=== PATIENT | female | born 1930 | race Caucasian/White ===

== ENCOUNTER 2018-12-17 13:45 | Inpatient (IN) | payer MEDICARE ==
[~2018-12-17 13:45] MED LIST: ISOVUE-370 76%-LOCM 1 ML ONE; Iopamidol 370 76% 50 ML VIAL FS ONE
[2018-12-17 14:54] LABS: #Basophils 0.1 thou/uL (0.0-0.2); #Eosinphils 0.1 thou/uL (0.0-0.7); #Lymphocytes 0.8 thou/uL (1.20-3.40); #Monocytes 0.5 thou/uL (0.11-0.59); #Neutrophils 7.5 thou/uL (1.40-6.50); %Basophils 0.6 % (0.0-1.0); %Eosinophils 0.8 % (0.0-10.0); %Lymphocytes 8.8 % (21.0-51.0); %Monocytes 5.3 % (0.0-10.0); %Neutrophils 84.5 % (42.0-75.0); Hemoglobin 10.8 g/dL (12.0-16.0); Mean Corpuscular HGB CONC 31.5 g/dL (32.0-36.0); Mean Corpuscular Hemoglobin 31.2 pg (27.0-31.0); Mean Corpuscular Volume 99.1 fL (78.0-98.0); Platelet Count 224 thou/uL (130-400); RBC Distribution Width 12.8 % (11.5-14.5); Red Blood Cell (RBC) Count 3.45 mill/uL (4.20-5.40); White Blood Cell (WBC) Count 8.9 thou/uL (4.8-10.8)
[2018-12-17 15:18] LABS: ALT (SGPT) 14 U/L (8-55); AST (SGOT) 20 U/L (5-34); Albumin 3.5 g/dL (3.4-4.8); Alkaline Phosphatase 77 U/L (40-150); Anion Gap 15 mmol/L (10-20); BUN (Urea Nitrogen) 26 mg/dL (9.8-20.1); Bilirubin, Total 0.2 mg/dL (0.2-1.2); Calc. Creatinine Clearance 0 mL/min (70-130); Calcium 9.9 mg/dL (7.8-10.44); Carbon Dioxide 31 mmol/L (23-31); Chloride 97 mmol/L (98-107); Estimated GFR-MDRD 89; Globulin 3.7 g/dL (2.4-3.5); Glucose 106 mg/dL (83-110); Potassium 4.1 mmol/L (3.5-5.1); Protein, Total 7.2 g/dL (6.0-8.3); Sodium 139 mmol/L (136-145)
[2018-12-17 16:16] LABS: INR-International Normal Ratio 0.9; PTT 42.8 SEC (22.9-36.1); Prothrombin Time 12.4 SEC (12.0-14.7)
[2018-12-17 17:04] LABS: Bilirubin Small (Negative); Blood, Urine Negative (Negative); Clarity TURBID (Clear); Glucose, Urine (Dipstick) Negative (Negative); Leukocyte Large (Negative); Nitrite Negative (Negative); Protein, Urine (Dipstick) 30 mg/dL (Neg-Trace); Specific Gravity, Urine 1.019 (1.002-1.036); Urobilinogen 0.2 mg/dL (0.2-1.0); pH, Urine 5.5 (5.0-9.0)
[2018-12-17 17:06] LABS: Bacteria/HPF 4+ HPF (None Seen); Hyaline Casts/LPF 7-10 HYALINE CAST LPF (0-3 Hyaline); Pathc Cast-AUWi Flag 0.53 (0-2.49); Squamous Epithelial None Seen HPF (0-3)
[2018-12-17 17:13] LABS: Yeast-AUWi Flag 47.5 (0-25.0)
[2018-12-17 17:14] LABS: Yeast-All Forms None Seen HPF (None Seen)
--- NOTE | 2018-12-17 18:03 | CT ---
CT OF THE ABDOMEN AND PELVIS WITH IV AND ENTERIC CONTRAST: 12/17/18 INDICATION: History of bright red blood in patient's stool since this morning with a history of Crohn's disease. COMPARISON: Prior exam dated 03/17/09. FINDINGS: There is mild subsegmental volume loss within the lingula and left lower lobe. No focal hepatic lesion is evident. There are two tiny hypodensities within the pancreas. One is seen measuring 4 mm within the pancreati c body. One is seen measuring 7 mm within the pancreas tail. These were likely present in 2008 and is relatively stable and may reflect small pancreatic cyst. There is a left adrenal nodule measuring 1.2 cm, stable to the prior exam likely reflecting a small a denoma. Right adrenal gland is normal appearing. There are small right renal cysts. The largest is seen within the right mid kidney measuring 2 cm. Le ft kidney is unremarkable appearing. There are moderate calcification involving the abdominal and pelvic vasculature. There is wall thickening involving a loop of sigmoid colon with pericolonic inflammatory stranding weinstein spicious for colonic diverticulitis. No definite drainable fluid collection is grossly evident. The o pacified small and large bowel appear otherwise within normal limits. There are scattered diverticul a involving the sigmoid colon and descending colon. There is diffuse osteopenia. There is levoscoliosis of the lumbar spine. There is scattered degenerat nolan and osteoarthritic change. No definite acute osseous abnormality is evident. IMPRESSION: 1. Findings suspicious for a sigmoid diverticulitis. There is wall thickening involving the sigm oid colon with scattered colonic diverticula. No drainable fluid collection is evident. 2. Left basilar atelectasis. 3. Small right renal cysts. 4. Small hypodensities within the pancreas stable to 2009 likely reflecting small pancreatic cys ts. 5. Diffuse osteopenia. POS: [facility]
[2018-12-17] MEDS ORDERED: metroNIDAZOLE 500 MG/100 ML BAG ONE (18:37)
[2018-12-17] MEDS ORDERED: Cefepime 2 GM VIAL ONE (18:47)
[2018-12-17] MEDS ORDERED: Ondansetron ODT 4 MG TAB SL PRN (22:48)
[2018-12-17] MEDS ORDERED: Ondansetron ODT 4 MG TAB PO PRN (22:48)
[2018-12-17] MEDS ORDERED: Ondansetron PF 4 MG/2 ML Vial IVP PRN ×2 (22:48)
[2018-12-17] MEDS ORDERED: Acetaminophen 325 MG TAB PO PRN ×2 (22:48)
[2018-12-17] MEDS ORDERED: Sodium Chloride 0.9% 1,000 ML IV SCH ×2 (22:48→23:00)
[2018-12-18] MEDS: cefTRIAXone\\ROCEPHIN 2 GM in Sodium Chloride 0.9% 100 ML IVPB SCH ×2 (00:42→22:37)
[2018-12-18] MEDS ORDERED: Budesonide 0.5 MG/2 ML NEB NEB SCH (00:45)
[2018-12-18] MEDS ORDERED: Arformoterol 15 MCG/2 ML NEB NEB SCH (00:45)
[2018-12-18 01:05] VITALS: BMI 15.7
[2018-12-18] MEDS: PROVENTIL INHALER 6.7 G (200 INHALATIONS) INH SCH ×2 (01:06→06:10)
--- NOTE | 2018-12-18 02:11 | HP ---
PRIMARY CARE PHYSICIAN: Brayden Carrasco DO CHIEF COMPLAINT: Hematochezia. HISTORY OF PRESENT ILLNESS: Ms. Mustafa is a pleasant 88-year-old female with a past medical history of COPD, Crohn's, asthma, who had presented to [facility] earlier today due to bloody loose stools. She had reported symptoms started this morning. Per family, the patient had spaghetti and spaghetti sauce about 2 days prior to arrival before her symptoms started. During her initial evaluation, CT of abdomen was obtained and did show findings suspicious for sigmoid diverticulitis with wall thickening involving the sigmoid colon with scattered colonic diverticula. No drainable fluid collection was evident. In the emergency department, she was started on IV cefepime and IV Flagyl. Vital signs remained stable. BP was noted to be slightly elevated at 176/84, pulse 69, respirations 16 nonlabored, O2 saturations remained stable at 98% on 2 L of oxygen. She had remained on her normal home dose of oxygen. She was seen and examined with her daughter at bedside. She had denied any fever or chills. Denied any headache, blurred vision, or dizziness. She denied any chest pain or shortness of breath, no more than her baseline. She had reported some mild abdominal cramping, however, this had resolved since being in the emergency department. She had denied any nausea or vomiting, but did report bright red blood in stool. She was started on a clear liquid diet and her primary pulmonary function technician, Dr. Hair was consulted for further evaluation of her condition. It was deemed that the patient be admitted as inpatient for continued IV antibiotics. It was also noted that her hemoglobin dropped to 10.8. Her last documented hemoglobin was back in 2017, which was found to be 15.2. Repeat hemoglobin was ordered and pending at this time. REVIEW OF SYSTEMS: All other systems reviewed and found to be negative unless mentioned in the HPI. PAST MEDICAL HISTORY: Significant for COPD, Crohn disease, asthma, history of skin cancer. PAST SURGICAL HISTORY: Denies any past surgical history. SOCIAL HISTORY: Denies any alcohol, tobacco, or illicit drug use. ALLERGIES: LACTOSE AND PENICILLINS. CURRENT HOME MEDICATIONS: 1. Asacol 800 mg b.i.d. 2. Montelukast 10 mg p.o. at bedtime. 3. Brovana 50 mcg inhalation b.i.d. 4. Budesonide 0.5 mg inhalation b.i.d. 5. Albuterol sulfate 4 mg p.o. every 4 hours. 6. Albuterol sulfate 90 mcg one inhalation q.6 hours as needed for wheezing. PHYSICAL EXAMINATION: VITAL SIGNS: BP 176/84, pulse 69, respirations 16, temp 98.2 degrees Fahrenheit, and O2 saturation 98% on 2 L via nasal cannula. GENERAL: The patient is awake, alert, and oriented x3. No acute distress noted. The patient appears cachectic. HEENT: Atraumatic, normocephalic. Pupils round and reactive to light. Extraocular muscles intact. Moist mucous membranes noted. Currently on 2 L of oxygen via nasal cannula. CARDIOVASCULAR: Positive S1 and S2. Regular rate and rhythm. No murmurs auscultated. RESPIRATORY: Clear to auscultation bilaterally with slight decreased aeration at the bases. No wheezes, no rales, no rhonchi. 2 L via nasal cannula in place. ABDOMEN: Soft. Mild tenderness in the left lower quadrant. No rebound. No rigidity. MUSCULOSKELETAL: Strength 5+ bilaterally in upper and lower extremities. Moves all extremities equal. No edema noted. NEUROLOGIC: Cranial nerves 2 through 12 grossly intact. No focal deficits noted. Speech is intact and normal. Gait not assessed. PSYCHIATRIC: Good mood and affect. LABORATORY DATA: WBC 8.9, RBC 3.45, hemoglobin 10.8, platelet 224. Sodium 139, potassium 4.1, anion gap 15, BUN 26, creatinine 0.63, estimated GFR 89. Urinalysis showed large leukocyte esterase, greater than 50 wbc's, 4+ bacteria, 30 protein, small bilirubin. DIAGNOSTIC IMAGING: CT of abdomen showed findings suspicious of sigmoid diverticulitis. There is wall thickening involving the sigmoid colon with scattered colonic diverticula. No drainable fluid collection is evident, left basilar atelectasis. Small right renal cyst. Small hypodensities within the pancreas, stable at 2009, likely reflecting small pancreatic cyst. Diffused osteopenia. ASSESSMENT AND PLAN: 1. Diverticulitis, continue on IV antibiotics at this time. Start the patient on clear liquid diet as tolerated. Recheck CBC in the a.m. and monitor for any further blood loss. If the patient's hemoglobin continues to drop, we will transfuse with packed red blood cells as needed. Consult placed for the patient's primary pulmonary function technician, Dr. Hair, for further evaluation. 2. Anemia, likely secondary to above. We will recheck CBC in the a.m. and depending on hemoglobin, we will transfuse as needed for hemoglobin less than 7 or further blood loss. 3. Urinary tract infection, this will be covered with IV antibiotics for diverticulitis. Urine culture ordered and pending at this time. 4. History of chronic obstructive pulmonary disease, currently stable at this time. Continue on 2 L of oxygen via nasal cannula and titrate as needed. Continue on patient's home regimen and monitor closely. 5. Gastrointestinal prophylaxis. 6. Deep venous thrombosis prophylaxis with SCDs. No further anticoagulation at this time as patient with risk of bleeding. 7. Generalized weakness. Order PT/OT for further evaluation. 8. Surrogate decision maker is patient's daughter. 9. Code status. There was further discussion with the patient and daughter. There was some discrepancy for code status, however, it was determined that the patient be placed on full code at this time and further changes as patient and daughter discussed further options. 10. Disposition, pending further workup and clinical findings. Job ID: [id number]
[2018-12-18] MEDS: metroNIDAZOLE 500 MG in Premix Bag 1 BAG IVPB SCH ×3 (05:25→22:36)
[2018-12-18] MEDS: Budesonide 0.5 MG/2 ML NEB NEB SCH ×2 (06:08→19:15)
[2018-12-18] MEDS: Arformoterol 15 MCG/2 ML NEB NEB SCH ×2 (06:12→19:13)
[2018-12-18] MEDS: hydrALAZINE 20 MG/ML VIAL SLOW IVP PRN (06:27)
[2018-12-18 06:38] LABS: #Basophils 0.1 thou/uL (0.0-0.2); #Eosinphils 0.1 thou/uL (0.0-0.7); #Monocytes 0.5 thou/uL (0.11-0.59); #Neutrophils 3.8 thou/uL (1.40-6.50); %Basophils 1.1 % (0.0-1.0); %Eosinophils 1.7 % (0.0-10.0); %Lymphocytes 17.7 % (21.0-51.0); %Monocytes 9.5 % (0.0-10.0); %Neutrophils 70.1 % (42.0-75.0); Hemoglobin 9.8 g/dL (12.0-16.0); Mean Corpuscular HGB CONC 31.4 g/dL (32.0-36.0); Mean Corpuscular Hemoglobin 31.4 pg (27.0-31.0); Mean Platelet Volume 8.1 fL (7.4-10.4); Platelet Count 173 thou/uL (130-400); RBC Distribution Width 12.8 % (11.5-14.5); Red Blood Cell (RBC) Count 3.11 mill/uL (4.20-5.40); White Blood Cell (WBC) Count 5.5 thou/uL (4.8-10.8)
[2018-12-18 07:11] LABS: Anion Gap 13 mmol/L (10-20); BUN (Urea Nitrogen) 18 mg/dL (9.8-20.1); Calc. Creatinine Clearance 41 mL/min (70-130); Calcium 9.2 mg/dL (7.8-10.44); Carbon Dioxide 30 mmol/L (23-31); Chloride 101 mmol/L (98-107); Estimated GFR-MDRD Greater than 90; Glucose 74 mg/dL (83-110); Potassium 3.8 mmol/L (3.5-5.1); Sodium 140 mmol/L (136-145)
[2018-12-18] MEDS: Famotidine/PF 20 mg/2ml Vial SLOW IVP SCH ×2 (09:02→22:36)
[2018-12-18] MEDS: Mesalamine DR 400 mg Capsule PO SCH ×2 (09:02→20:02)
[2018-12-18] MEDS: Dextrose 5 %-0.45 % NaCl 1,000 ML IV SCH (14:51)
[2018-12-18 17:53] LABS: Platelet Count 184 thou/uL (130-400)
--- NOTE | 2018-12-18 19:19 | PDOC.PN ---
- Subjective Encounter Start Date: 12/18/18 Encounter Start Time: 19:17 Patient seen and examined for Diverticulitis with GI bleeding and UTI. Had multiple episodes of hematochezia today. No N/V. No new complaints. No overnight events - Objective Resuscitation Status - Order Detail: 12/17/18 22:48 Resuscitation Status Routine Co-Sign Provider: Resuscitation Status: FULL: Full Resuscitation MAR Reviewed: Yes Vital Signs & Weight: Vital Signs (12 hours) Temp Pulse Resp BP Pulse Ox 12/18/18 19:03 85 16 97 12/18/18 16:00 98.4 F 84 20 165/67 H 97 12/18/18 11:45 98.2 F 94 20 118/57 L 100 12/18/18 11:33 84 18 97 12/18/18 07:18 98.0 F 94 24 H 158/62 H 100 Weight Weight 89 lb 4.8 oz I&O: 12/17/18 12/18/18 12/19/18 06:59 06:59 06:59 Intake Total 800 Balance 800 Result Diagrams: 12/18/18 17:46 12/18/18 06:14 Additional Labs: Laboratory Tests 12/17/18 12/18/18 12/18/18 14:41 06:14 17:46 Hgb 10.8 L 9.8 L 8.0 L Radiology Reviewed by me: Yes (CT abd - Diverticulitis) Phys Exam - Physical Examination Constitutional: NAD Neck: no JVD Respiratory: no wheezing, no rales, no rhonchi Symmetrical Cardiovascular: RRR, no rub no heaves/pulsations Gastrointestinal: soft, non-tender, no distention, positive bowel sounds Musculoskeletal: no edema, pulses present Neurological: non-focal, normal sensation, moves all 4 limbs Skin: no rash, normal turgor Dx/Plan (1) GI bleed Code(s): K92.2 - GASTROINTESTINAL HEMORRHAGE, UNSPECIFIED Status: Acute Qualifiers: GI bleed type/associated pathology: diverticulitis Qualified Code(s): K57.93 - Diverticulitis of intestine, part unspecified, without perforation or abscess with bleeding (2) Acute blood loss anemia Code(s): D62 - ACUTE POSTHEMORRHAGIC ANEMIA Status: Acute (3) UTI (urinary tract infection) Status: Acute (4) IBD (inflammatory bowel disease) Code(s): K52.9 - NONINFECTIVE GASTROENTERITIS AND COLITIS, UNSPECIFIED Status : Chronic (5) Mild persistent asthma Code(s): J45.30 - MILD PERSISTENT ASTHMA, UNCOMPLICATED Status: Chronic - Plan cont current plan of care, continue antibiotics, PT/OT, DVT proph w/SCDs Cont current Atbx, Add D5 to IVF -: Cont Nebs -: Transfuse 1 unit PRBC due to significant drop in HH -: Monitor HH -: GI following, Cont current meds as below Review of Systems - Review of Systems Respiratory: negative: Cough, Dry, Shortness of Breath, Hemoptysis, SOB with Excertion, Pleuritic Pain, Sputum, Wheezing Cardiovascular: negative: chest pain, palpitations, orthopnea, paroxysmal nocturnal dyspnea, edema, light headedness, other Gastrointestinal: negative: Nausea, Vomiting, Abdominal Pain, Diarrhea, Constipation, Melena, Hematochezia, Other - Medications/Allergies Allergies/Adverse Reactions: Allergies Allergy/AdvReac Type Severity Reaction Status Date / Time [place] And Derivatives Allergy Verified 12/18/18 00:09 lactulose Allergy Verified 12/18/18 00:09 Penicillins Allergy Verified 12/18/18 00:09 Medications: Current Medications Acetaminophen (Tylenol) 650 mg PO Q4H PRN PRN Reason: Headache/Fever/Mild Pain (1-3) Albuterol/Ipratropium (Duoneb) 3 ml NEB [id number] FELIX Last Admin: 12/18/18 19:03 Dose: 3 ml Albuterol/Ipratropium (Duoneb) 3 ml NEB [id number] PRN PRN Reason: SOB &/or Wheezing Arformoterol Tartrate (Brovana) 15 mcg NEB BID-RT FELIX Last Admin: 12/18/18 19:13 Dose: 15 mcg Budesonide (Pulmicort Neb Solution) 0.5 mg NEB BID-RT FELIX Last Admin: 12/18/18 19:15 Dose: 0.5 mg Famotidine (Pepcid) 20 mg SLOW IVP Q12HR FELIX Last Admin: 12/18/18 09:02 Dose: 20 mg Hydralazine HCl (Apresoline) 5 mg SLOW IVP Q4H PRN PRN Reason: BP > 170/105 Last Admin: 12/18/18 06:27 Dose: 5 mg Ceftriaxone Sodium 2 gm/ (Sodium Chloride) 100 mls @ 200 mls/hr IVPB Q24HR [facility] Last Admin: 12/18/18 00:42 Dose: 100 mls Metronidazole 500 mg/ Device 100 mls @ 100 mls/hr IVPB Q8HR [facility] Last Admin: 12/18/18 14:52 Dose: 100 mls Dextrose/Sodium Chloride (D5 1/2 Ns) 1,000 mls @ 75 mls/hr IV .[id number] [facility] Last Admin: 12/18/18 14:51 Dose: 1,000 mls Mesalamine (Delzicol Dr) 800 mg PO BID [facility] Last Admin: 12/18/18 09:02 Dose: 800 mg Montelukast Sodium (Singulair) 10 mg PO HS [facility] Ondansetron HCl (Zofran Odt) 4 mg PO Q6H PRN PRN Reason: Nausea/Vomiting Ondansetron HCl (Zofran) 4 mg IVP Q6H PRN PRN Reason: Nausea/Vomiting Sodium Chloride (Flush - Normal Saline) 10 ml IVF Q12HR [facility] Last Admin: 12/18/18 09:02 Dose: Not Given Sodium Chloride (Flush - Normal Saline) 10 ml IVF PRN PRN PRN Reason: Saline Flush
[2018-12-18] MEDS: Montelukast Sodium 10 mg Tablet PO SCH (20:02)
--- NOTE | 2018-12-18 22:04 | CON ---
DATE OF CONSULTATION: 12/18/2018 REASON FOR CONSULTATION: Hematochezia, diverticulitis. CONSULTING PHYSICIAN: Bhuimka Dale M.D. HISTORY OF PRESENT ILLNESS: The patient is an 88-year-old female with a past medical history of COPD, asthma, history of skin cancer status post resection and Crohn's disease (right colonic side) presenting with complaints of hematochezia. She states that she was in her usual state of health until yesterday morning when she had the acute onset of bright red blood per rectum. It was characterized as a moderate amount of bright red blood that was present in the toilet, not on the toilet paper, but mixed with the stool. She proceeded to have 2-3 larger bloody bowel movements throughout the day, which prompted her to seek healthcare assistance at [facility]. During the ER admit, she had a CT of the abdomen and pelvis, which showed findings suspicious for sigmoid diverticulitis consistent with wall thickening involving the sigmoid colon with adjacent scattered colonic diverticula. She was admitted to the hospital for further evaluation, on IV antibiotics and IV fluids. Over the course of the last 24 hours, she has continued to have approximately 3-4 bloody bowel movements consisting of primarily blood mixed in with stool. Her hematochezia is also associated with increased mid abdominal pain characterized as a cramping pressure-type sensation, nonradiating, but would reach a severity of approximately 5-6/10. She does not endorse any clear exacerbating or alleviating factors. Currently, she denies any nausea, vomiting, fever, chills, hematemesis, melena, dysphagia, odynophagia, or constipation. Of note, prior to this admission, she was having approximately 1 solid bowel movement per day with no difficulty with defecation when compared to her prior flares of Crohn's in the past her current symptoms are not consistent with that diagnosis. REVIEW OF SYSTEMS: A 10-category review of systems was obtained with all responses negative except for the pertinent positives as listed in HPI. PAST MEDICAL HISTORY: As per HPI. PAST SURGICAL HISTORY: None except for colonoscopy in 2006. FAMILY HISTORY: Denies any GI malignancies. SOCIAL HISTORY: Denies any tobacco, alcohol, or illicit drug use. OUTPATIENT MEDICATIONS: Reviewed. ALLERGIES: PENICILLIN AND LACTOSE. PHYSICAL EXAMINATION: VITAL SIGNS: Temperature 97.5, pulse 71, blood pressure 123/58, respiratory rate 19, saturating 99% on room air. GENERAL: The patient was lying in bed, in no acute distress. However, she was alert and oriented x3 with occasional tangential thought processes, what appeared to be possible visual hallucinations. HEENT: Normocephalic atraumatic. NECK: Supple. No JVD or scleral icterus noted. CARDIOVASCULAR: Regular rate and rhythm with 3/6 systolic ejection murmur. No discernible gallops or rubs. RESPIRATORY: Clear to auscultation bilaterally with no discernible wheezes or rales. ABDOMEN: Normoactive bowel sounds. Soft, nondistended. Tenderness to palpation in the left lower quadrant and left mid abdomen. EXTREMITIES: Cachectic in appearance with no cyanosis, clubbing, or edema. LABORATORY DATA: CBC with a white blood cell count of 5.5, hemoglobin 9.8, hematocrit 31.2, platelets 173, INR 0.9. Chemistry with a sodium of 140, potassium 3.8, chloride 101, CO2 30, BUN 18, creatinine 0.59, glucose 74. Urinalysis consistent with a urinary tract infection. IMAGING DATA: CT of the abdomen and pelvis was obtained on December 17, 2018, which showed mild subsegmental volume loss within the lingula and left lower lobe of the lung. There were 2 tiny hypodensities within the pancreas measuring 4 mm and 7 mm within the pancreatic body and tail respectively that are stable when compared to prior examinations. There was moderate calcification involving the abdominal and pelvic vasculature. However, there was significant wall thickening involving a loop of sigmoid colon with pericolonic inflammatory stranding suspicious for colonic diverticulitis. There was no definite drainable fluid collection or evidence of perforation. There were scattered diverticula seen involving the sigmoid and descending colons. ASSESSMENT AND PLAN: The patient is an 88-year-old female with past medical history of severe chronic obstructive pulmonary disease, asthma, history of skin cancer and right-sided colonic Crohn's disease presenting with hematochezia and diverticulitis. Diverticulitis: The patient is presenting with acute onset of hematochezia characterized as bright red blood per rectum, primarily seen within the toilet with minimal amounts seen on the toilet paper. She had multiple bloody bowel movements for the last 24 hours consisting primarily of blood, but with some stool mixed in. Per imaging review, she has evidence of acute diverticulitis with increased pericolonic fat stranding around the sigmoid colon with adjacent diverticula. Again further running itself toward the diagnosis of diverticulitis. Based on the fairly sudden onset of the symptoms and her history of right-sided colonic Crohn's disease, I think a Crohn's disease flare is highly unlikely at this time, especially since her Crohn's disease has been controlled for the last few years with Asacol as monotherapy. At this time, the differential for her hematochezia could include diverticulitis with inflammation of the colon, diverticular bleeding, ischemic colitis, Crohn's disease flare (much less likely), arteriovenous malformation, Dieulafoy lesion and/or colonic malignancy. RECOMMENDATIONS: 1. We would continue to trend H and H and transfuse as necessary to maintain an H and H of 7/. 2. Continue to monitor clinically for signs of active GI bleeding. 3. We would continue with broad-spectrum antibiotics for treatment of her diverticulitis. 4. Pain control per primary team. 5. We would continue mesalamine administration at approximately 1.6 g per day. 6. We would hold on any endoscopic management at this time given the increased risk of perforation associated with endoscopic management of diverticulitis. However, if she continues to have significant hematochezia, decreasing H and H, a colonoscopy may be warranted to evaluate for possible diverticular bleeding. 7. We will continue to follow. 8. Please call with any questions. Job ID: [id number]
[2018-12-19] MEDS: metroNIDAZOLE 500 MG in Premix Bag 1 BAG IVPB SCH ×3 (05:23→21:07)
[2018-12-19] MEDS: Dextrose 5 %-0.45 % NaCl 1,000 ML IV SCH ×2 (05:24→14:26)
[2018-12-19] MEDS: Budesonide 0.5 MG/2 ML NEB NEB SCH ×2 (05:37→18:31)
[2018-12-19] MEDS: Arformoterol 15 MCG/2 ML NEB NEB SCH ×2 (05:40→18:32)
[2018-12-19 07:19] LABS: #Basophils 0.1 thou/uL (0.0-0.2); #Lymphocytes 0.9 thou/uL (1.20-3.40); #Monocytes 0.4 thou/uL (0.11-0.59); #Neutrophils 5.7 thou/uL (1.40-6.50); %Basophils 0.7 % (0.0-1.0); %Eosinophils 0.3 % (0.0-10.0); %Lymphocytes 12.7 % (21.0-51.0); %Monocytes 5.9 % (0.0-10.0); %Neutrophils 80.4 % (42.0-75.0); Hemoglobin 6.7 g/dL (12.0-16.0); Mean Corpuscular HGB CONC 32.2 g/dL (32.0-36.0); Mean Corpuscular Hemoglobin 31.3 pg (27.0-31.0); Mean Corpuscular Volume 97.1 fL (78.0-98.0); Mean Platelet Volume 8.2 fL (7.4-10.4); Platelet Count 172 thou/uL (130-400); RBC Distribution Width 13.9 % (11.5-14.5); Red Blood Cell (RBC) Count 2.13 mill/uL (4.20-5.40); White Blood Cell (WBC) Count 7.1 thou/uL (4.8-10.8)
[2018-12-19 07:41] LABS: Anion Gap 9 mmol/L (10-20); BUN (Urea Nitrogen) 19 mg/dL (9.8-20.1); Calc. Creatinine Clearance 38 mL/min (70-130); Carbon Dioxide 29 mmol/L (23-31); Chloride 102 mmol/L (98-107); Estimated GFR-MDRD 87; Glucose 148 mg/dL (83-110); Magnesium 1.7 mg/dL (1.6-2.6); Potassium 3.3 mmol/L (3.5-5.1); Sodium 137 mmol/L (136-145)
[2018-12-19] MEDS ORDERED: Fleet Enema 133 ML BOT PR SCH ×2 (09:15→09:30)
[2018-12-19] MEDS: Famotidine/PF 20 mg/2ml Vial SLOW IVP SCH ×2 (09:21→20:16)
--- NOTE | 2018-12-19 10:25 | PDOC.PN ---
- Subjective Encounter Start Date: 12/19/18 Encounter Start Time: 09:15 -: old records requested/rev Patient seen and examined. No overnight events pt is arousable and follows some command, but confused today her H & H dropped - Objective Resuscitation Status - Order Detail: 12/17/18 22:48 Resuscitation Status Routine Co-Sign Provider: Resuscitation Status: FULL: Full Resuscitation MAR Reviewed: Yes Vital Signs & Weight: Vital Signs (12 hours) Temp Pulse Resp BP BP Pulse Ox 12/19/18 08:00 99 12/19/18 07:39 97.4 F L 73 16 96/53 L 100 12/19/18 05:40 76 18 97 12/19/18 05:37 76 18 97 12/19/18 00:55 97.8 F 76 20 12/19/18 00:21 71 16 95 12/18/18 22:34 97.4 F L 17 128/62 98 Weight Weight 89 lb 4.8 oz Most Recent Monitor Data Heart Rate from ECG 70 I&O: 12/18/18 12/19/18 12/20/18 06:59 06:59 06:59 Intake Total 800 1300 0 Balance 800 1300 0 Result Diagrams: 12/19/18 06:38 12/19/18 06:38 Phys Exam - Physical Examination Constitutional: NAD HEENT: PERRLA, moist MMs, sclera anicteric Neck: no JVD, supple Respiratory: no wheezing, no rales, no rhonchi Cardiovascular: RRR, no significant murmur, no rub Gastrointestinal: soft, non-tender, no distention, positive bowel sounds Musculoskeletal: no edema, pulses present Neurological: moves all 4 limbs Lymphatic: no nodes Psychiatric: normal affect Skin: no rash, normal turgor Dx/Plan (1) Acute blood loss anemia Code(s): D62 - ACUTE POSTHEMORRHAGIC ANEMIA Status: Acute (2) GI bleed Code(s): K92.2 - GASTROINTESTINAL HEMORRHAGE, UNSPECIFIED Status: Acute Qualifiers: GI bleed type/associated pathology: diverticulitis Qualified Code(s): K57.93 - Diverticulitis of intestine, part unspecified, without perforation or abscess with bleeding (3) UTI (urinary tract infection) Status: Acute (4) IBD (inflammatory bowel disease) Code(s): K52.9 - NONINFECTIVE GASTROENTERITIS AND COLITIS, UNSPECIFIED Status : Chronic (5) Mild persistent asthma Code(s): J45.30 - MILD PERSISTENT ASTHMA, UNCOMPLICATED Status: Chronic (6) Protein-calorie malnutrition, moderate Code(s): E44.0 - MODERATE PROTEIN-CALORIE MALNUTRITION Status: Chronic - Plan cont current plan of care, continue antibiotics, respiratory therapy * transfuse 1 unit PRBC * continue empiric rocephin and flagyl * may need endoscopy, GI on case * repeat labs tomorrow * medication reviewed as below * symptomatic treatment. * continue IVF Review of Systems - Review of Systems Other: not reliable due to her cognitive status - Medications/Allergies Allergies/Adverse Reactions: Allergies Allergy/AdvReac Type Severity Reaction Status Date / Time [place] And Derivatives Allergy Verified 12/18/18 00:09 lactulose Allergy Verified 12/18/18 00:09 Penicillins Allergy Verified 12/18/18 00:09 Medications: Current Medications Acetaminophen (Tylenol) 650 mg PO Q4H PRN PRN Reason: Headache/Fever/Mild Pain (1-3) Albuterol/Ipratropium (Duoneb) 3 ml NEB [id number] FELIX Last Admin: 12/19/18 05:37 Dose: 3 ml Albuterol/Ipratropium (Duoneb) 3 ml NEB [id number] PRN PRN Reason: SOB &/or Wheezing Arformoterol Tartrate (Brovana) 15 mcg NEB BID-RT FELIX Last Admin: 12/19/18 05:40 Dose: 15 mcg Budesonide (Pulmicort Neb Solution) 0.5 mg NEB BID-RT FELIX Last Admin: 12/19/18 05:37 Dose: 0.5 mg Famotidine (Pepcid) 20 mg SLOW IVP Q12HR [facility] Last Admin: 12/19/18 09:21 Dose: Not Given Hydralazine HCl (Apresoline) 5 mg SLOW IVP Q4H PRN PRN Reason: BP > 170/105 Last Admin: 12/18/18 06:27 Dose: 5 mg Ceftriaxone Sodium 2 gm/ (Sodium Chloride) 100 mls @ 200 mls/hr IVPB Q24HR [facility] Last Admin: 12/18/18 22:37 Dose: 100 mls Metronidazole 500 mg/ Device 100 mls @ 100 mls/hr IVPB Q8HR [facility] Last Admin: 12/19/18 05:23 Dose: 100 mls Dextrose/Sodium Chloride (D5 1/2 Ns) 1,000 mls @ 75 mls/hr IV .[id number] [facility] Last Admin: 12/19/18 05:24 Dose: 1,000 mls Mesalamine (Delzicol Dr) 800 mg PO BID [facility] Last Admin: 12/18/18 20:02 Dose: 800 mg Montelukast Sodium (Singulair) 10 mg PO HS [facility] Last Admin: 12/18/18 20:02 Dose: 10 mg Ondansetron HCl (Zofran Odt) 4 mg PO Q6H PRN PRN Reason: Nausea/Vomiting Ondansetron HCl (Zofran) 4 mg IVP Q6H PRN PRN Reason: Nausea/Vomiting Sodium Biphosphate/Sodium Phosphate (Fleet Enema) 133 ml AL NOW COUNT INCLUDES THE [facility] Stop: 12/19/18 11:15 Sodium Biphosphate/Sodium Phosphate (Fleet Enema) 133 ml AL WILLCALL COUNT INCLUDES THE [facility] Stop: 12/19/18 18:00 Sodium Chloride (Flush - Normal Saline) 10 ml IVF Q12HR [facility] Last Admin: 12/19/18 09:24 Dose: Not Given Sodium Chloride (Flush - Normal Saline) 10 ml IVF PRN PRN PRN Reason: Saline Flush
[2018-12-19] MEDS ORDERED: Ketamine 50 MG/ML (10ML VIAL) ONE (11:01)
[2018-12-19] MEDS ORDERED: Promethazine HCl 25 MG/ML VIAL IM PRN (11:30)
[2018-12-19] MEDS ORDERED: Promethazine HCl 25 MG/ML VIAL SLOW IVP PRN (11:30)
[2018-12-19] MEDS ORDERED: Ondansetron HCl/PF 4 MG/2 ML Vial IVP PRN (11:30)
--- NOTE | 2018-12-19 12:30 | OP ---
DATE OF PROCEDURE: 12/19/2018 PROCEDURE PERFORMED: Flexible sigmoidoscopy with control of hemorrhage. INDICATION FOR PROCEDURE: Hematochezia. DESCRIPTION OF PROCEDURE: After the risks and benefits of the procedure were explained to the patient's surrogate including risks of bleeding, infection, perforation, reactions to anesthesia, aspiration, and/or pain, informed consent was obtained. The patient was then taken to the endoscopy suite, where sedation was achieved, using ketamine via Anesthesia support. Once adequate sedation was achieved, the standard gastroscope was introduced into the rectum and advanced to approximately 60 cm past the anal verge with careful inspection of the colonic mucosa upon withdrawal. The quality of the prep was fair to poor but adequate visualization was achieved for the purposes of finding active GI bleeding. The patient tolerated the procedure well with no immediate perioperative complications. Upon conclusion of the procedure, all equipment was removed from the patient and she was transferred to PACU in satisfactory condition. FINDINGS: Digital rectal exam, normal-appearing external examination with no masses palpated. FLEXIBLE SIGMOIDOSCOPY FINDINGS: The gastroscope was advanced to 60 cm past the anal verge with careful inspection of the colonic mucosa. There was a large amount of both retained solid and liquid stool that did interfere with visualization somewhat but was adequate for the purposes of establishing a possible GI bleeding source. Multiple diverticula were seen in the distal descending and sigmoid colons that were both small and large in size at approximately 30 cm past the anal verge. A small diverticulum was seen with an overlying clot extending into the lumen of the colon consistent with a prior GI bleeding source, hemoclip x2. We then employed to try to approximate the mucosal defect made by the diverticulum with good hemostasis achieved. This diverticulum was also seen in an area of increased inflammation characterized by increased erythema and ulceration of the colonic mucosa for approximately 5 cm in either direction from this diverticulum consistent with her prior diagnosis of diverticulitis. No biopsies were taken to confirm the diagnosis given her increased risk of bleeding with biopsies. Otherwise, normal-appearing mucosa was seen in the rectum with small internal hemorrhoids seen on rectal retroflexion. IMPRESSION: 1. Increased mucosal erythema and ulceration seen at 30 to 40 cm, consistent with diverticulitis. 2. A diverticulum was seen at 30 to 35 cm with an overlying clot consistent with recent GI bleed, now status post hemoclip x2 with good hemostasis achieved and no bleeding observed at the end of the procedure. 3. Severe left-sided diverticulosis. 4. Internal hemorrhoids (nonbleeding). RECOMMENDATIONS: 1. Would continue to trend hemoglobin and hematocrit and transfuse as necessary to maintain a hemoglobin and hematocrit of 7/21. 2. We will continue to monitor clinically for signs of active GI bleeding. 3. Continue to treat diverticulitis with antibiotic administration with ceftriaxone and metronidazole. If the patient does not have any observed improvement over the next 24 to 48 hours, would consider broadening coverage to include Zosyn rather than ceftriaxone. 4. Pain control per primary team. 5. We will place the patient on a full liquid diet for the time being and advance as tolerated. We will continue to follow. Please call with any questions. Job ID: [id number]
[2018-12-19] MEDS: Mesalamine DR 400 mg Capsule PO SCH ×3 (13:18→20:23)
[2018-12-19 17:29] LABS: Hemoglobin 7.7 g/dL (12.0-16.0)
[2018-12-19] MEDS: Montelukast Sodium 10 mg Tablet PO SCH ×2 (20:16→20:23)
[2018-12-19] MEDS: cefTRIAXone\\ROCEPHIN 2 GM in Sodium Chloride 0.9% 100 ML IVPB SCH (22:17)
[2018-12-20] MEDS: metroNIDAZOLE 500 MG in Premix Bag 1 BAG IVPB SCH ×3 (05:06→20:58)
[2018-12-20] MEDS: Dextrose 5 %-0.45 % NaCl 1,000 ML IV SCH (05:09)
[2018-12-20] MEDS: Budesonide 0.5 MG/2 ML NEB NEB SCH ×2 (07:29→19:15)
[2018-12-20] MEDS: Famotidine/PF 20 mg/2ml Vial SLOW IVP SCH ×2 (07:44→20:40)
[2018-12-20] MEDS: Mesalamine DR 400 mg Capsule PO SCH ×2 (07:45→20:39)
[2018-12-20] MEDS: Arformoterol 15 MCG/2 ML NEB NEB SCH ×2 (08:50→19:15)
--- NOTE | 2018-12-20 09:54 | PDOC.PN ---
- Subjective Encounter Start Date: 12/20/18 Encounter Start Time: 07:40 Patient seen and examined. No new complaints. No overnight events - Objective Resuscitation Status - Order Detail: 12/17/18 22:48 Resuscitation Status Routine Co-Sign Provider: Resuscitation Status: FULL: Full Resuscitation MAR Reviewed: Yes Vital Signs & Weight: Vital Signs (12 hours) Temp Pulse Resp BP BP Pulse Ox 12/20/18 08:50 68 16 99 12/20/18 08:26 98.6 F 18 142/63 H 93 L 12/20/18 08:10 98.4 F 20 156/61 H 94 L 12/20/18 07:35 70 16 99 12/20/18 07:33 99 12/20/18 07:29 70 16 99 12/20/18 03:37 98.2 F 63 16 136/57 L 98 12/20/18 03:08 98 12/20/18 00:28 97.9 F 62 18 123/55 L 98 12/20/18 00:06 12 Weight Weight 89 lb 4.8 oz Most Recent Monitor Data Heart Rate from ECG 70 I&O: 12/19/18 12/20/18 12/21/18 06:59 06:59 06:59 Intake Total 1300 1450 0 Balance 1300 1450 0 Result Diagrams: 12/20/18 04:22 12/19/18 06:38 Phys Exam - Physical Examination Constitutional: NAD HEENT: PERRLA, moist MMs, sclera anicteric Neck: no JVD, supple Respiratory: no wheezing, no rales, no rhonchi Cardiovascular: RRR, no significant murmur, no rub Gastrointestinal: soft, non-tender, no distention, positive bowel sounds Musculoskeletal: no edema, pulses present Neurological: non-focal, normal sensation Lymphatic: no nodes Psychiatric: normal affect Skin: no rash, normal turgor Dx/Plan (1) GI bleed Code(s): K92.2 - GASTROINTESTINAL HEMORRHAGE, UNSPECIFIED Status: Acute Qualifiers: GI bleed type/associated pathology: diverticulitis Qualified Code(s): K57.93 - Diverticulitis of intestine, part unspecified, without perforation or abscess with bleeding (2) Acute blood loss anemia Code(s): D62 - ACUTE POSTHEMORRHAGIC ANEMIA Status: Acute (3) UTI (urinary tract infection) Status: Acute (4) IBD (inflammatory bowel disease) Code(s): K52.9 - NONINFECTIVE GASTROENTERITIS AND COLITIS, UNSPECIFIED Status : Chronic (5) Mild persistent asthma Code(s): J45.30 - MILD PERSISTENT ASTHMA, UNCOMPLICATED Status: Chronic (6) Protein-calorie malnutrition, moderate Code(s): E44.0 - MODERATE PROTEIN-CALORIE MALNUTRITION Status: Chronic (7) Acute diverticulitis Code(s): K57.92 - DVTRCLI OF INTEST, PART UNSP, W/O PERF OR ABSCESS W/O BLEED Status: Acute (8) Hypokalemia Code(s): E87.6 - HYPOKALEMIA Status: Acute - Plan cont current plan of care, continue antibiotics * continue empiric antibiotic rocephin and flagyl * will transfuse 1 more unit prbc today * palliative care consult for goal of care * medication reviewed as below * symptomatic treatment * repeat labs tomorrow. Review of Systems - Review of Systems ENT: negative: Ear Pain, Ear Discharge, Nose Pain, Nose Discharge, Nose Congestion, Mouth Pain, Mouth Swelling, Throat Pain, Throat Swelling, Other Respiratory: negative: Cough, Dry, Shortness of Breath, Hemoptysis, SOB with Excertion, Pleuritic Pain, Sputum, Wheezing Cardiovascular: negative: chest pain, palpitations, orthopnea, paroxysmal nocturnal dyspnea, edema, light headedness, other Gastrointestinal: negative: Nausea, Vomiting, Abdominal Pain, Diarrhea, Constipation, Melena, Hematochezia, Other Genitourinary: negative: Dysuria, Frequency, Incontinence, Hematuria, Retention , Other Musculoskeletal: negative: Neck Pain, Shoulder Pain, Arm Pain, Back Pain, Hand Pain, Leg Pain, Foot Pain, Other - Medications/Allergies Allergies/Adverse Reactions: Allergies Allergy/AdvReac Type Severity Reaction Status Date / Time [place] And Derivatives Allergy Verified 12/18/18 00:09 lactulose Allergy Verified 12/18/18 00:09 Penicillins Allergy Verified 12/18/18 00:09 Medications: Current Medications Acetaminophen (Tylenol) 650 mg PO Q4H PRN PRN Reason: Headache/Fever/Mild Pain (1-3) Albuterol/Ipratropium (Duoneb) 3 ml NEB [id number] FELIX Last Admin: 12/20/18 07:35 Dose: 3 ml Albuterol/Ipratropium (Duoneb) 3 ml NEB [id number] PRN PRN Reason: SOB &/or Wheezing Arformoterol Tartrate (Brovana) 15 mcg NEB BID-RT [facility] Last Admin: 12/20/18 08:50 Dose: 15 mcg Budesonide (Pulmicort Neb Solution) 0.5 mg NEB BID-RT [facility] Last Admin: 12/20/18 07:29 Dose: 0.5 mg Famotidine (Pepcid) 20 mg SLOW IVP Q12HR [facility] Last Admin: 12/20/18 07:44 Dose: 20 mg Hydralazine HCl (Apresoline) 5 mg SLOW IVP Q4H PRN PRN Reason: BP > 170/105 Last Admin: 12/18/18 06:27 Dose: 5 mg Ceftriaxone Sodium 2 gm/ (Sodium Chloride) 100 mls @ 200 mls/hr IVPB Q24HR [facility] Last Admin: 12/19/18 22:17 Dose: 100 mls Metronidazole 500 mg/ Device 100 mls @ 100 mls/hr IVPB Q8HR [facility] Last Admin: 12/20/18 05:06 Dose: 100 mls Mesalamine (Delzicol Dr) 800 mg PO BID [facility] Last Admin: 12/20/18 07:45 Dose: 800 mg Montelukast Sodium (Singulair) 10 mg PO HS [facility] Last Admin: 12/19/18 20:23 Dose: Not Given Ondansetron HCl (Zofran Odt) 4 mg PO Q6H PRN PRN Reason: Nausea/Vomiting Ondansetron HCl (Zofran) 4 mg IVP Q6H PRN PRN Reason: Nausea/Vomiting Sodium Chloride (Flush - Normal Saline) 10 ml IVF Q12HR [facility] Last Admin: 12/20/18 07:44 Dose: 10 ml Sodium Chloride (Flush - Normal Saline) 10 ml IVF PRN PRN PRN Reason: Saline Flush
[2018-12-20] MEDS ORDERED: Furosemide 20 MG/2 ML VIAL SLOW IVP SCH (20:00)
[2018-12-20] MEDS ORDERED: Cetirizine HCl 10 MG TAB PO SCH (20:32)
--- NOTE | 2018-12-20 20:36 | RAD ---
CHEST ONE VIEW 12/20/18 HISTORY: Shortness of breath. COMPARISON: Chest radiograph 05/17/09. FINDINGS: Lungs are hyperinflated. There are bilateral lower lobe air space opacities worse in the left lower l obe with left sided small effusion. Heart size is enlarged. There is interstitial scarring in the ya g bases. IMPRESSION: Bibasilar pneumonia with left parapneumonic effusion. Recommend followup after treatment. POS: [facility]
[2018-12-20] MEDS: Montelukast Sodium 10 mg Tablet PO SCH (20:38)
[2018-12-20] MEDS ORDERED: Loratadine 10 MG TAB PO SCH (20:45)
[2018-12-20] MEDS: hydrALAZINE 20 MG/ML VIAL SLOW IVP PRN ×2 (20:51→23:29)
[2018-12-20] MEDS: cefTRIAXone\\ROCEPHIN 2 GM in Sodium Chloride 0.9% 100 ML IVPB SCH (22:02)
[2018-12-20] MEDS ORDERED: Azithromycin 500 MG in Sodium Chloride 0.9% 250 ML 250 ML IVPB SCH (22:30)
--- NOTE | 2018-12-20 23:22 | PRG ---
DATE OF SERVICE: 12/20/2018 REASON FOR CONSULTATION: Hematochezia, diverticulitis. SUBJECTIVE: The patient does continue to have some mild alteration in her mental status with mild visual hallucinations, but is able to be reoriented and is appropriate. Per nursing staff, she has not had a bowel movement today nor has she had any further episodes of hematochezia. Currently, denies any nausea, vomiting, fevers, chills, abdominal pain, or GI bleeding. OBJECTIVE: VITAL SIGNS: Temperature 98.1, pulse 94, blood pressure 167/74, respiratory rate 21, saturating 94% on 2 L nasal cannula. GENERAL: The patient is lying in bed, in no acute distress. Alert and oriented x2. CARDIOVASCULAR: Regular rate and rhythm with 3/6 systolic ejection murmur. RESPIRATORY: Clear to auscultation bilaterally. ABDOMEN: Normoactive bowel sounds. Soft, nondistended, mild tenderness to palpation in the left lower quadrant. EXTREMITIES: No cyanosis, clubbing, or edema. LABORATORY DATA: Hemoglobin of 7 and hematocrit of 21. IMAGING DATA: The patient underwent flexible sigmoidoscopy on December 19, 2018, with findings of diverticulitis within the sigmoid colon. However, within the sigmoid colon, there was an area of increased ulcerations surrounding multiple diverticula with one diverticulum in particular having enlarged adherent clot consistent with a recent GI bleed. Hemoclip x2 were used to approximate the diverticular mouth with good hemostasis achieved. ASSESSMENT AND PLAN: The patient is an 88-year-old female with past medical history of severe chronic obstructive pulmonary disease, asthma, history of skin cancer, and right-sided colonic Crohn's disease presenting with hematochezia and diverticulitis. Diverticulitis. The patient was initially presenting with acute onset of hematochezia with multiple bloody bowel movements for 24 hours prior to admission. On admission, she was noted to have imaging consistent with acute diverticulitis with pericolonic fat stranding around the sigmoid colon. However, with continued bloody bowel movements, there was concern for possible diverticular bleed for which she underwent colonoscopy on December 19, 2018. Colonoscopy showed an adherent blood clot overlying the one diverticulum in the sigmoid colon consistent with a diverticular bleed. This was intervened upon with hemoclip x2 with good hemostasis achieved. She has not had any further episodes of hematochezia since the intervention, although she has had some downtrending of her H and H, which may be due to collaboration. At this point in time, the most likely reason for her bleeding would be the diverticulitis and inflammation of ulceration associated with fat affecting the existing diverticula within the sigmoid colon. RECOMMENDATIONS: 1. I would continue to trend H and H and transfuse as necessary to maintain an H and H of 7/21. 2. Continue to monitor clinically for signs of active GI bleeding. 3. Continue broad-spectrum antibiotics for treatment of diverticulitis. 4. Pain control per primary team. 5. Continue mesalamine administration of approximately 1.6 g per day. We will continue to follow. Please call with any questions. Job ID: [id number]
[2018-12-21] MEDS: PROVENTIL INHALER 6.7 G (200 INHALATIONS) INH SCH ×5 (01:48→23:43)
[2018-12-21] MEDS: metroNIDAZOLE 500 MG in Premix Bag 1 BAG IVPB SCH ×3 (05:11→22:48)
[2018-12-21 06:14] LABS: #Lymphocytes 0.9 thou/uL (1.20-3.40); #Monocytes 0.9 thou/uL (0.11-0.59); #Neutrophils 13.6 thou/uL (1.40-6.50); %Basophils 0.1 % (0.0-1.0); %Eosinophils 0.2 % (0.0-10.0); %Lymphocytes 5.7 % (21.0-51.0); %Monocytes 5.5 % (0.0-10.0); %Neutrophils 88.5 % (42.0-75.0); Hemoglobin 9.2 g/dL (12.0-16.0); Mean Corpuscular HGB CONC 31.9 g/dL (32.0-36.0); Mean Corpuscular Hemoglobin 31.3 pg (27.0-31.0); Mean Corpuscular Volume 98.1 fL (78.0-98.0); Mean Platelet Volume 8.2 fL (7.4-10.4); Platelet Count 153 thou/uL (130-400); RBC Distribution Width 13.9 % (11.5-14.5); Red Blood Cell (RBC) Count 2.94 mill/uL (4.20-5.40); White Blood Cell (WBC) Count 15.4 thou/uL (4.8-10.8)
[2018-12-21 06:37] LABS: ALT (SGPT) 18 U/L (8-55); AST (SGOT) 34 U/L (5-34); Albumin 2.4 g/dL (3.4-4.8); Alkaline Phosphatase 42 U/L (40-150); Anion Gap 8 mmol/L (10-20); BUN (Urea Nitrogen) 9 mg/dL (9.8-20.1); Bilirubin, Total 0.2 mg/dL (0.2-1.2); Calc. Creatinine Clearance 46 mL/min (70-130); Calcium 7.8 mg/dL (7.8-10.44); Carbon Dioxide 28 mmol/L (23-31); Chloride 108 mmol/L (98-107); Estimated GFR-MDRD Greater than 90; Globulin 2.2 g/dL (2.4-3.5); Glucose 105 mg/dL (83-110); Protein, Total 4.6 g/dL (6.0-8.3); Sodium 142 mmol/L (136-145)
[2018-12-21 06:42] LABS: Potassium 2.3 mmol/L (3.5-5.1)
[2018-12-21] MEDS: Arformoterol 15 MCG/2 ML NEB NEB SCH ×2 (07:02→18:39)
[2018-12-21] MEDS: Budesonide 0.5 MG/2 ML NEB NEB SCH ×2 (07:28→18:35)
[2018-12-21 08:12] LABS: Magnesium 1.5 mg/dL (1.6-2.6)
[2018-12-21 08:17] LABS: Phosphorus 1.7 mg/dL (2.3-4.7)
[2018-12-21] MEDS ORDERED: Magnesium Sulfate 4 GM in Sodium Chloride 0.9% 250 ML 250 ML IVPB SCH (08:30)
[2018-12-21] MEDS ORDERED: Potassium Phosphate 30 MMOL in Sodium Chloride 0.9% 500 ML IVPB SCH (08:30)
[2018-12-21] MEDS: Potassium Chloride 20 MEQ in Premix Bag 1 BAG IVPB SCH ×4 (08:43→19:04)
[2018-12-21] MEDS: Potassium Chloride 20 MEQ TAB PO SCH ×2 (08:58→17:10)
[2018-12-21] MEDS: Famotidine/PF 20 mg/2ml Vial SLOW IVP SCH ×2 (08:58→20:26)
[2018-12-21] MEDS: Loratadine 10 MG TAB PO SCH (08:59)
[2018-12-21] MEDS: Mesalamine DR 400 mg Capsule PO SCH ×3 (09:01→20:43)
--- NOTE | 2018-12-21 09:10 | PDOC.PN ---
- Subjective Encounter Start Date: 12/21/18 Encounter Start Time: 07:30 Patient seen and examined. No overnight events, pt has cough and chest xray found pneumonia - Objective Resuscitation Status - Order Detail: 12/17/18 22:48 Resuscitation Status Routine Co-Sign Provider: Resuscitation Status: FULL: Full Resuscitation MAR Reviewed: Yes Vital Signs & Weight: Vital Signs (12 hours) Temp Pulse Resp BP BP Pulse Ox 12/21/18 07:28 72 20 95 12/21/18 07:07 72 20 95 12/21/18 07:02 72 20 95 12/21/18 07:01 79 18 95 12/21/18 03:54 98.9 F 86 20 123/56 L 96 12/21/18 00:20 99.1 F 95 20 138/64 95 12/20/18 23:29 94 174/69 H 12/20/18 22:25 94 21 H 94 L 12/20/18 21:30 20 167/74 H Weight Weight 89 lb 4.8 oz Most Recent Monitor Data Heart Rate from ECG 68 I&O: 12/20/18 12/21/18 12/22/18 06:59 06:59 06:59 Intake Total 1450 1810 Balance 1450 1810 Result Diagrams: 12/21/18 05:37 12/21/18 05:37 Radiology Reviewed by me: Yes (chest xray reviewed) Phys Exam - Physical Examination Constitutional: NAD HEENT: PERRLA, sclera anicteric Neck: no JVD, supple Respiratory: no wheezing, no rhonchi few scattered basal rales Cardiovascular: RRR, no significant murmur, no rub Gastrointestinal: soft, non-tender, no distention, positive bowel sounds Musculoskeletal: no edema, pulses present Neurological: non-focal Lymphatic: no nodes Psychiatric: normal affect Skin: no rash, normal turgor Dx/Plan (1) GI bleed Code(s): K92.2 - GASTROINTESTINAL HEMORRHAGE, UNSPECIFIED Status: Acute Qualifiers: GI bleed type/associated pathology: diverticulitis Qualified Code(s): K57.93 - Diverticulitis of intestine, part unspecified, without perforation or abscess with bleeding (2) Acute blood loss anemia Code(s): D62 - ACUTE POSTHEMORRHAGIC ANEMIA Status: Acute (3) UTI (urinary tract infection) Status: Acute (4) IBD (inflammatory bowel disease) Code(s): K52.9 - NONINFECTIVE GASTROENTERITIS AND COLITIS, UNSPECIFIED Status : Chronic (5) Mild persistent asthma Code(s): J45.30 - MILD PERSISTENT ASTHMA, UNCOMPLICATED Status: Chronic (6) Protein-calorie malnutrition, moderate Code(s): E44.0 - MODERATE PROTEIN-CALORIE MALNUTRITION Status: Chronic (7) Acute diverticulitis Code(s): K57.92 - DVTRCLI OF INTEST, PART UNSP, W/O PERF OR ABSCESS W/O BLEED Status: Acute (8) Hypokalemia Code(s): E87.6 - HYPOKALEMIA Status: Acute (9) Hypomagnesemia Code(s): E83.42 - HYPOMAGNESEMIA Status: Acute (10) Hypophosphatemia Code(s): E83.39 - OTHER DISORDERS OF PHOSPHORUS METABOLISM Status: Acute (11) Pneumonia Code(s): J18.9 - PNEUMONIA, UNSPECIFIED ORGANISM Status: Acute - Plan cont current plan of care, continue antibiotics * replace potassium phosphate * replace potassium chloride * replace magnesium sulfate * add levaquin * DC Azithromycin * continue rocephin * repeat labs tomorrow * medication reviewed as below * symptomatic treatment. Review of Systems - Review of Systems Other: not reliable with pt due to her dementia - Medications/Allergies Allergies/Adverse Reactions: Allergies Allergy/AdvReac Type Severity Reaction Status Date / Time [place] And Derivatives Allergy Verified 12/18/18 00:09 lactulose Allergy Verified 12/18/18 00:09 Penicillins Allergy Verified 12/18/18 00:09 Medications: Current Medications Acetaminophen (Tylenol) 650 mg PO Q4H PRN PRN Reason: Headache/Fever/Mild Pain (1-3) Albuterol Sulfate (Proventil Hfa) 2 puff INH [id number] [id number] Last Admin: 12/21/18 07:01 Dose: Not Given Albuterol Sulfate (Ventolin) 4 mg PO [id number] FELIX Last Admin: 12/21/18 05:12 Dose: Not Given Albuterol/Ipratropium (Duoneb) 3 ml NEB [id number] FELIX Last Admin: 12/21/18 07:07 Dose: 3 ml Albuterol/Ipratropium (Duoneb) 3 ml NEB [id number] PRN PRN Reason: SOB &/or Wheezing Last Admin: 12/20/18 22:25 Dose: 3 ml Arformoterol Tartrate (Brovana) 15 mcg NEB BID-RT [facility] Last Admin: 12/21/18 07:02 Dose: 15 mcg Budesonide (Pulmicort Neb Solution) 0.5 mg NEB BID-RT [facility] Last Admin: 12/21/18 07:28 Dose: 0.5 mg Famotidine (Pepcid) 20 mg SLOW IVP Q12HR [facility] Last Admin: 12/20/18 20:40 Dose: 20 mg Hydralazine HCl (Apresoline) 5 mg SLOW IVP Q4H PRN PRN Reason: BP > 170/105 Last Admin: 12/20/18 23:29 Dose: 5 mg Ceftriaxone Sodium 2 gm/ (Sodium Chloride) 100 mls @ 200 mls/hr IVPB Q24HR [facility] Last Admin: 12/20/18 22:02 Dose: 100 mls Metronidazole 500 mg/ Device 100 mls @ 100 mls/hr IVPB Q8HR [facility] Last Admin: 12/21/18 05:11 Dose: 100 mls Potassium Chloride 20 meq/ (Device) 100 mls @ 50 mls/hr IVPB Q2H [facility] Stop: 12/21/18 15:59 Levofloxacin 500 mg/ Device 100 mls @ 100 mls/hr IVPB ONCALL-OR FELIX Magnesium Sulfate 4 gm/ Sodium (Chloride) 258 mls @ 86 mls/hr IVPB ONE [facility] Stop: 12/21/18 12:00 Potassium Phosphate 30 mmol/ (Sodium Chloride) 510 mls @ 83.3 mls/hr IVPB ONE [facility] Stop: 12/21/18 14:00 Loratadine (Claritin) 10 mg PO DAILY [facility] Mesalamine (Delzicol Dr) 800 mg PO BID [facility] Last Admin: 12/20/18 20:39 Dose: 800 mg Montelukast Sodium (Singulair) 10 mg PO HS [facility] Last Admin: 12/20/18 20:38 Dose: 10 mg Ondansetron HCl (Zofran Odt) 4 mg PO Q6H PRN PRN Reason: Nausea/Vomiting Ondansetron HCl (Zofran) 4 mg IVP Q6H PRN PRN Reason: Nausea/Vomiting Potassium Chloride (K-Dur) 40 meq PO BID- FELIX Sodium Chloride (Flush - Normal Saline) 10 ml IVF Q12HR [facility] Last Admin: 12/20/18 20:58 Dose: 10 ml Sodium Chloride (Flush - Normal Saline) 10 ml IVF PRN PRN PRN Reason: Saline Flush
--- NOTE | 2018-12-21 16:54 | PRG ---
DATE OF SERVICE: 12/21/2018 REASON FOR CONSULTATION: Hematochezia, diverticulitis. SUBJECTIVE: Overnight, the patient did not exhibit any problems or complaints nor did she have any further bouts of hematochezia. Her H and H did decrease to a threshold level, and she was infused with approximately 2 units of PRBCs with appropriate elevation in her blood counts this morning on lab review. Per nursing staff, she has had approximately 1 to 2 bowel movements over the last 24 hours, again with no further episodes of hematochezia. Currently, she denies any nausea, vomiting, fevers, chills, abdominal pain, or GI bleeding. OBJECTIVE: VITAL SIGNS: Temperature 98.3, pulse 77, blood pressure 124/66, respiratory rate 20, and saturating 96% on 2 L nasal cannula. GENERAL: The patient was lying in bed, in no acute distress. Alert and oriented x2. CARDIOVASCULAR: Regular rate and rhythm with a 3/6 systolic murmur. RESPIRATORY: Clear to auscultation bilaterally. ABDOMEN: Normoactive bowel sounds. Soft, nontender, nondistended. EXTREMITIES: No cyanosis, clubbing, or edema. LABORATORY DATA: CBC with a white blood cell count of 15.4, hemoglobin 9.2, hematocrit 28.9, platelets 153. Chemistry with a sodium of 142, potassium 2.3, chloride 108, CO2 of 28, BUN 9, creatinine 0.53, glucose 105, AST 34, ALT 18, alkaline phosphatase 42, total bilirubin 0.2. IMAGING DATA: No current GI imaging is available for review. ASSESSMENT AND PLAN: The patient is an 88-year-old female with past medical history of severe chronic obstructive pulmonary disease, asthma, history of skin cancer, and right-sided colonic Crohn's disease presenting with hematochezia secondary to diverticulitis/diverticular bleeding. The patient initially presented with acute onset of hematochezia with multiple bloody bowel movements for 24 hours prior to admission. On admission, she was noted to have labs and imaging consistent with acute uncomplicated diverticulitis. However, she continued to have bloody bowel movements as well as a significant drop in her H and H over the next 24 hours concerning for diverticular bleeding. She ultimately underwent a flexible sigmoidoscopy on December 19, 2018 at which point one diverticula in particular in the sigmoid colon was seen with significant inflammation, ulceration, and a blood clot overlying it consistent with recent bleeding. This was intervened upon with hemoclip x2 with good hemostasis achieved and no further episodes of hematochezia since. At this time the most likely reason for her bleeding would have been the diverticulitis and inflammation/ulceration of one of the associated diverticula that then eroded into a blood vessel causing the bleeding. At the current point in time, her abdominal pain has improved significantly with IV antibiotic administration. RECOMMENDATIONS: 1. I would continue to trend H and H and transfuse as necessary to maintain an H and H of 05/17. 2. Continue to monitor clinically for signs of active GI bleeding. 3. Continue broad-spectrum antibiotics for treatment of diverticulitis. However, you could consider transferring the patient to oral formulation for outpatient treatment. 4. Pain control per primary team. 5. We would continue mesalamine administration of approximately 1.6 g per day. We will continue to follow. Please call with any questions. Job ID: [id number]
[2018-12-21] MEDS: Montelukast Sodium 10 mg Tablet PO SCH ×2 (20:26→20:43)
[2018-12-22] MEDS: cefTRIAXone\\ROCEPHIN 2 GM in Sodium Chloride 0.9% 100 ML IVPB SCH ×2 (00:07→22:07)
[2018-12-22] MEDS: metroNIDAZOLE 500 MG in Premix Bag 1 BAG IVPB SCH ×3 (06:00→21:14)
[2018-12-22 06:37] LABS: #Eosinphils 0.1 thou/uL (0.0-0.7); #Lymphocytes 0.9 thou/uL (1.20-3.40); #Monocytes 0.8 thou/uL (0.11-0.59); #Neutrophils 5.9 thou/uL (1.40-6.50); %Basophils 0.6 % (0.0-1.0); %Eosinophils 0.7 % (0.0-10.0); %Lymphocytes 11.7 % (21.0-51.0); %Monocytes 10.4 % (0.0-10.0); %Neutrophils 76.7 % (42.0-75.0); Hemoglobin 9.4 g/dL (12.0-16.0); Mean Corpuscular HGB CONC 32.3 g/dL (32.0-36.0); Mean Corpuscular Hemoglobin 32.1 pg (27.0-31.0); Mean Corpuscular Volume 99.5 fL (78.0-98.0); Mean Platelet Volume 8.4 fL (7.4-10.4); Platelet Count 163 thou/uL (130-400); Red Blood Cell (RBC) Count 2.92 mill/uL (4.20-5.40); White Blood Cell (WBC) Count 7.7 thou/uL (4.8-10.8)
[2018-12-22 06:55] LABS: Anion Gap 7 mmol/L (10-20); BUN (Urea Nitrogen) 8 mg/dL (9.8-20.1); Calc. Creatinine Clearance 47 mL/min (70-130); Carbon Dioxide 28 mmol/L (23-31); Chloride 111 mmol/L (98-107); Estimated GFR-MDRD Greater than 90; Glucose 84 mg/dL (83-110); Magnesium 2.5 mg/dL (1.6-2.6); Phosphorus 2.4 mg/dL (2.3-4.7); Potassium 4.1 mmol/L (3.5-5.1); Sodium 142 mmol/L (136-145)
[2018-12-22] MEDS: PROVENTIL INHALER 6.7 G (200 INHALATIONS) INH SCH ×4 (07:04→20:29)
[2018-12-22] MEDS: Budesonide 0.5 MG/2 ML NEB NEB SCH ×2 (07:09→18:38)
[2018-12-22] MEDS: Arformoterol 15 MCG/2 ML NEB NEB SCH ×2 (07:09→18:38)
[2018-12-22] MEDS: Famotidine/PF 20 mg/2ml Vial SLOW IVP SCH ×2 (07:55→20:12)
[2018-12-22] MEDS: Potassium Chloride 20 MEQ TAB PO SCH ×2 (10:16→16:45)
[2018-12-22] MEDS: Loratadine 10 MG TAB PO SCH (10:16)
[2018-12-22] MEDS: Mesalamine DR 400 mg Capsule PO SCH ×2 (10:16→20:11)
--- NOTE | 2018-12-22 10:28 | PDOC.PN ---
- Subjective Encounter Start Date: 12/22/18 Encounter Start Time: 08:30 Patient seen and examined. No new complaints. No overnight events - Objective Resuscitation Status - Order Detail: 12/21/18 14:37 Resuscitation Status Routine Resuscitation Status: DNAR: NO Resuscitation Discussed with: discussed with daughter MINESH Reviewed: Yes Vital Signs & Weight: Vital Signs (12 hours) Temp Pulse Resp BP Pulse Ox 12/22/18 08:00 98.4 F 82 20 164/69 H 94 L 12/22/18 07:10 94 L 12/22/18 07:09 72 20 94 L 12/22/18 07:06 72 16 94 L 12/22/18 07:04 76 20 94 L 12/22/18 04:00 98.3 F 78 18 157/69 H 98 12/22/18 02:48 95 12/22/18 00:08 98.5 F 77 18 151/68 H 100 12/21/18 23:42 12 Weight Weight 89 lb 4.8 oz Most Recent Monitor Data Heart Rate from ECG 68 I&O: 12/21/18 12/22/18 12/23/18 06:59 06:59 06:59 Intake Total 1810 1720 Balance 1810 1720 Result Diagrams: 12/22/18 05:52 12/22/18 05:52 Phys Exam - Physical Examination Constitutional: NAD HEENT: PERRLA, moist MMs, sclera anicteric Neck: no JVD, supple Respiratory: no wheezing, no rales, no rhonchi Cardiovascular: RRR, no significant murmur, no rub Gastrointestinal: soft, non-tender, no distention, positive bowel sounds Musculoskeletal: no edema, pulses present Neurological: non-focal Lymphatic: no nodes Skin: no rash, normal turgor Dx/Plan (1) GI bleed Code(s): K92.2 - GASTROINTESTINAL HEMORRHAGE, UNSPECIFIED Status: Acute Qualifiers: GI bleed type/associated pathology: diverticulitis Qualified Code(s): K57.93 - Diverticulitis of intestine, part unspecified, without perforation or abscess with bleeding (2) Acute blood loss anemia Code(s): D62 - ACUTE POSTHEMORRHAGIC ANEMIA Status: Acute (3) UTI (urinary tract infection) Status: Acute (4) IBD (inflammatory bowel disease) Code(s): K52.9 - NONINFECTIVE GASTROENTERITIS AND COLITIS, UNSPECIFIED Status : Chronic (5) Mild persistent asthma Code(s): J45.30 - MILD PERSISTENT ASTHMA, UNCOMPLICATED Status: Chronic (6) Protein-calorie malnutrition, moderate Code(s): E44.0 - MODERATE PROTEIN-CALORIE MALNUTRITION Status: Chronic (7) Acute diverticulitis Code(s): K57.92 - DVTRCLI OF INTEST, PART UNSP, W/O PERF OR ABSCESS W/O BLEED Status: Acute (8) Hypokalemia Code(s): E87.6 - HYPOKALEMIA Status: Acute (9) Hypomagnesemia Code(s): E83.42 - HYPOMAGNESEMIA Status: Acute (10) Hypophosphatemia Code(s): E83.39 - OTHER DISORDERS OF PHOSPHORUS METABOLISM Status: Acute (11) Pneumonia Code(s): J18.9 - PNEUMONIA, UNSPECIFIED ORGANISM Status: Acute - Plan cont current plan of care, continue antibiotics * medication reviewed as below * symptomatic treatment. * continue rocephin and levaquin * pt is NPO for her dysphagia, speech therapy following Review of Systems - Review of Systems Other: not reliable due to dementia - Medications/Allergies Allergies/Adverse Reactions: Allergies Allergy/AdvReac Type Severity Reaction Status Date / Time Herminie And Derivatives Allergy Verified 12/18/18 00:09 lactulose Allergy Verified 12/18/18 00:09 Penicillins Allergy Verified 12/18/18 00:09 Medications: Current Medications Acetaminophen (Tylenol) 650 mg PO Q4H PRN PRN Reason: Headache/Fever/Mild Pain (1-3) Albuterol Sulfate (Proventil Hfa) 2 puff INH [id number] [facility] Last Admin: 12/22/18 07:04 Dose: 2 puff Albuterol Sulfate (Ventolin) 4 mg PO [id number] [facility] Last Admin: 12/22/18 06:00 Dose: Not Given Albuterol/Ipratropium (Duoneb) 3 ml NEB [id number] [facility] Last Admin: 12/22/18 07:06 Dose: 3 ml Albuterol/Ipratropium (Duoneb) 3 ml NEB [id number] PRN PRN Reason: SOB &/or Wheezing Last Admin: 12/20/18 22:25 Dose: 3 ml Arformoterol Tartrate (Brovana) 15 mcg NEB BID-RT [facility] Last Admin: 12/22/18 07:09 Dose: 15 mcg Budesonide (Pulmicort Neb Solution) 0.5 mg NEB BID-RT [facility] Last Admin: 12/22/18 07:09 Dose: 0.5 mg Famotidine (Pepcid) 20 mg SLOW IVP Q12HR [facility] Last Admin: 12/22/18 07:55 Dose: 20 mg Hydralazine HCl (Apresoline) 5 mg SLOW IVP Q4H PRN PRN Reason: BP > 170/105 Last Admin: 12/20/18 23:29 Dose: 5 mg Ceftriaxone Sodium 2 gm/ (Sodium Chloride) 100 mls @ 200 mls/hr IVPB Q24HR [facility] Last Admin: 12/22/18 00:07 Dose: 100 mls Metronidazole 500 mg/ Device 100 mls @ 100 mls/hr IVPB Q8HR [facility] Last Admin: 12/22/18 06:00 Dose: 100 mls Levofloxacin 500 mg/ Device 100 mls @ 100 mls/hr IVPB ONCALL-OR [facility] Loratadine (Claritin) 10 mg PO DAILY [facility] Last Admin: 12/22/18 10:16 Dose: Not Given Mesalamine (Delzicol Dr) 800 mg PO BID [facility] Last Admin: 12/22/18 10:16 Dose: Not Given Montelukast Sodium (Singulair) 10 mg PO HS [facility] Last Admin: 12/21/18 20:43 Dose: Not Given Ondansetron HCl (Zofran Odt) 4 mg PO Q6H PRN PRN Reason: Nausea/Vomiting Ondansetron HCl (Zofran) 4 mg IVP Q6H PRN PRN Reason: Nausea/Vomiting Potassium Chloride (K-Dur) 40 meq PO BID-[facility] Last Admin: 12/22/18 10:16 Dose: Not Given Sodium Chloride (Flush - Normal Saline) 10 ml IVF Q12HR [facility] Last Admin: 12/22/18 10:16 Dose: Not Given Sodium Chloride (Flush - Normal Saline) 10 ml IVF PRN PRN PRN Reason: Saline Flush
--- NOTE | 2018-12-22 15:14 | HP ---
HISTORY OF PRESENT ILLNESS: Ms. Mustafa is a bit sleepy. Nurse notes she is a bit confused. She has had no bleeding. Apparently, her daughter is meeting with palliative care team presently. There has been issues per the Speech Pathologist with her being able to handle eating at home and apparently her daughter has been feeding her baby food because she can swallow well. PHYSICAL EXAMINATION: VITAL SIGNS: Temperature is 98, pulse 82, blood pressure 164/69. She is 96% saturation on 2.5 L nasal cannula. GENERAL: She is resting in bed. She is little bit confused, but no distress. ABDOMEN: Soft and nontender. HEENT: Oropharynx slightly dry. LABORATORY DATA: White count 7.7, hemoglobin 9.4, and platelet count 163. Sodium 142, potassium 4.1, BUN and creatinine are 8 and 0.52. ASSESSMENT: 1. Lower GI bleeding. Apparently, she had a diverticular bleed that was cleared by Dr. Valadez on the showed no bleeding since then. 2. History of chronic ulcerative colitis, which she has not really followed for in some time. She has gotten worse. Her lung disease has got worse. Her daughter is really taking care of her at home dose. She was taking mesalamine, but not the immunomodulator she has been in the past. 3. Diverticulitis per CT scan and per Dr. Valadez's sigmoidoscopy with controlled bleeding on . She is on antibiotics for that. Her pain is better. 4. Emphysema. 5. Some dementia. PLAN: 1. Agree with feeding as tolerated. Puree diet. She does have some aspiration risk, but the family and the patient desired to take that small risk and continue feeding. 2. Agree with end of life decision making and palliative care consultation, which is ongoing now with the family. We will follow along with you. Job ID: [id number]
[2018-12-22] MEDS ORDERED: Montelukast Sodium 10 mg Tablet PO SCH (16:15)
[2018-12-22] MEDS: Montelukast Sodium 10 mg Tablet PO SCH (20:13)
[2018-12-22] MEDS ORDERED: PROVENTIL INHALER 6.7 G (200 INHALATIONS) INH PRN (22:27)
[2018-12-23] MEDS: metroNIDAZOLE 500 MG in Premix Bag 1 BAG IVPB SCH ×3 (06:12→21:09)
[2018-12-23] MEDS: Budesonide 0.5 MG/2 ML NEB NEB SCH ×2 (06:41→19:24)
[2018-12-23] MEDS: Arformoterol 15 MCG/2 ML NEB NEB SCH ×2 (06:42→19:22)
[2018-12-23] MEDS: Potassium Chloride 20 MEQ TAB PO SCH (10:18)
[2018-12-23] MEDS: Mesalamine DR 400 mg Capsule PO SCH ×2 (10:19→21:10)
[2018-12-23] MEDS: Cetirizine HCl 10 MG TAB PO SCH (10:19)
[2018-12-23] MEDS: Famotidine/PF 20 mg/2ml Vial SLOW IVP SCH ×2 (11:45→20:55)
[2018-12-23] MEDS: Dextrose 5 % And 0.9 % NaCl 1,000 ML IV SCH (11:46)
--- NOTE | 2018-12-23 12:08 | PDOC.PN ---
- Subjective Encounter Start Date: 12/23/18 Encounter Start Time: 09:10 pt is weak on left side, daughter was present bedside, pt has very poor po intake and very weak - Objective Resuscitation Status - Order Detail: 12/21/18 14:37 Resuscitation Status Routine Resuscitation Status: DNAR: NO Resuscitation Discussed with: discussed with daughter MINESH Reviewed: Yes Vital Signs & Weight: Vital Signs (12 hours) Temp Pulse Resp BP Pulse Ox 12/23/18 07:04 97.9 F 94 16 184/77 H 98 12/23/18 06:42 87 20 95 12/23/18 06:40 95 12/23/18 06:37 87 20 95 12/23/18 00:20 83 20 93 L Weight Weight 89 lb 4.8 oz Most Recent Monitor Data Heart Rate from ECG 68 I&O: 12/22/18 12/23/18 12/24/18 06:59 06:59 06:59 Intake Total 1720 940 Balance 1720 940 Result Diagrams: 12/22/18 05:52 12/22/18 05:52 Phys Exam - Physical Examination Constitutional: NAD HEENT: PERRLA, sclera anicteric Neck: no nodes, no JVD, supple Respiratory: no wheezing, no rales, no rhonchi Cardiovascular: RRR, no significant murmur, no rub Gastrointestinal: soft, non-tender, no distention Musculoskeletal: no edema, pulses present left side weakness Lymphatic: no nodes Psychiatric: normal affect Skin: no rash, normal turgor Dx/Plan (1) GI bleed Code(s): K92.2 - GASTROINTESTINAL HEMORRHAGE, UNSPECIFIED Status: Acute Qualifiers: GI bleed type/associated pathology: diverticulitis Qualified Code(s): K57.93 - Diverticulitis of intestine, part unspecified, without perforation or abscess with bleeding (2) Acute blood loss anemia Code(s): D62 - ACUTE POSTHEMORRHAGIC ANEMIA Status: Acute (3) UTI (urinary tract infection) Status: Acute (4) IBD (inflammatory bowel disease) Code(s): K52.9 - NONINFECTIVE GASTROENTERITIS AND COLITIS, UNSPECIFIED Status : Chronic (5) Mild persistent asthma Code(s): J45.30 - MILD PERSISTENT ASTHMA, UNCOMPLICATED Status: Chronic (6) Protein-calorie malnutrition, moderate Code(s): E44.0 - MODERATE PROTEIN-CALORIE MALNUTRITION Status: Chronic (7) Acute diverticulitis Code(s): K57.92 - DVTRCLI OF INTEST, PART UNSP, W/O PERF OR ABSCESS W/O BLEED Status: Acute (8) Hypokalemia Code(s): E87.6 - HYPOKALEMIA Status: Acute (9) Hypomagnesemia Code(s): E83.42 - HYPOMAGNESEMIA Status: Acute (10) Hypophosphatemia Code(s): E83.39 - OTHER DISORDERS OF PHOSPHORUS METABOLISM Status: Acute (11) Pneumonia Code(s): J18.9 - PNEUMONIA, UNSPECIFIED ORGANISM Status: Acute (12) Left-sided weakness Code(s): R53.1 - WEAKNESS Status: Acute - Plan cont current plan of care, plan discussed w/ family, continue antibiotics, social work associate, respiratory therapy * I spoke with daughter bedside about 20 minutes and answered all her question and addressed concerns * she is considering hospice care inpt if she qualify * she wants her to give IVF as her PO intake is poor * she does not want peg tube feeding for halfway * she does not want CT brain or more testing to diagnose CVA which is likely clinically * she is ok with diet and meds with aspiration risk * prognosis is very poor * supportive care * she is not ready herself to be discharged today * medication reviewed as below * symptomatic treatment. Review of Systems - Review of Systems Other: not reliable due to pt's dementia - Medications/Allergies Allergies/Adverse Reactions: Allergies Allergy/AdvReac Type Severity Reaction Status Date / Time Worth And Derivatives Allergy Verified 12/18/18 00:09 lactulose Allergy Verified 12/18/18 00:09 Penicillins Allergy Verified 12/18/18 00:09 Medications: Current Medications Acetaminophen (Tylenol) 650 mg PO Q4H PRN PRN Reason: Headache/Fever/Mild Pain (1-3) Albuterol Sulfate (Ventolin) 4 mg PO [id number] [facility] Last Admin: 12/23/18 10:19 Dose: Not Given Albuterol Sulfate (Proventil Hfa) 2 puff INH Q2H PRN PRN Reason: Wheezing Albuterol/Ipratropium (Duoneb) 3 ml NEB [id number] [facility] Last Admin: 12/23/18 06:37 Dose: 3 ml Albuterol/Ipratropium (Duoneb) 3 ml NEB [id number] PRN PRN Reason: SOB &/or Wheezing Last Admin: 12/22/18 20:37 Dose: 3 ml Arformoterol Tartrate (Brovana) 15 mcg NEB BID-RT [facility] Last Admin: 12/23/18 06:42 Dose: 15 mcg Budesonide (Pulmicort Neb Solution) 0.5 mg NEB BID-RT [facility] Last Admin: 12/23/18 06:41 Dose: 0.5 mg Cetirizine HCl (Zyrtec) 10 mg PO DAILY [facility] Last Admin: 12/23/18 10:19 Dose: Not Given Famotidine (Pepcid) 20 mg SLOW IVP Q12HR [facility] Last Admin: 12/23/18 11:45 Dose: 20 mg Hydralazine HCl (Apresoline) 5 mg SLOW IVP Q4H PRN PRN Reason: BP > 170/105 Last Admin: 12/20/18 23:29 Dose: 5 mg Ceftriaxone Sodium 2 gm/ (Sodium Chloride) 100 mls @ 200 mls/hr IVPB Q24HR [facility] Last Admin: 12/22/18 22:07 Dose: 100 mls Metronidazole 500 mg/ Device 100 mls @ 100 mls/hr IVPB Q8HR [facility] Last Admin: 12/23/18 11:45 Dose: 100 mls Levofloxacin 500 mg/ Device 100 mls @ 100 mls/hr IVPB ONCALL-OR [facility] Dextrose/Sodium Chloride (D5 0.9% Ns) 1,000 mls @ 30 mls/hr IV .Q24H [facility] Last Admin: 12/23/18 11:46 Dose: 1,000 mls Mesalamine (Delzicol Dr) 800 mg PO BID [facility] Last Admin: 12/23/18 10:19 Dose: Not Given Montelukast Sodium (Singulair) 10 mg PO HS [facility] Last Admin: 12/22/18 20:13 Dose: Not Given Ondansetron HCl (Zofran Odt) 4 mg PO Q6H PRN PRN Reason: Nausea/Vomiting Ondansetron HCl (Zofran) 4 mg IVP Q6H PRN PRN Reason: Nausea/Vomiting Sodium Chloride (Flush - Normal Saline) 10 ml IVF Q12HR [facility] Last Admin: 12/23/18 11:46 Dose: Not Given Sodium Chloride (Flush - Normal Saline) 10 ml IVF PRN PRN PRN Reason: Saline Flush
--- NOTE | 2018-12-23 14:17 | PQF ---
SOFIA VIVEROS, ECHO BARROS MD [id number] [id number] CLINICAL DOCUMENTATION IMPROVEMENT CLARIFICATION FORM: ICD-10 Updated PLEASE DO AN ADDENDUM TO THE PROGRESS NOTE WITH ANY DOCUMENTATION UPDATES OR ADDITIONS AND CARRY THROUGH TO DC SUMMARY. THANK YOU. DATE: 12/23 ATTN: DR. ECHO MEYERS Please exercise your independent, professional judgment in responding to the clarification form. Clinical indicators are provided on the bottom of this form for your review. Please check appropriate box(s): [ x] Aspiration Pneumonia [ x ] Empirically treating Gram Negative Pneumonia [ ] Simple Pneumonia (community acquired - nosocomial) [ ] Other diagnosis [ ] Unable to determine In addition, please specify: Present on Admission (POA): [ ] Yes [ x ] No [ ] Unable to determine For continuity of documentation, please document condition throughout progress notes and discharge summary. Thank You. CLINICAL INDICATORS - SIGNS / SYMPTOMS / LABS PN 12/21 (MIRA): PT HAS COUGH & CXR FOUND PNEUMONIA. DX/PLAN: 11) PNEUMONIA, UNSPECIFIED ORGANISM. ADD LEVAQUIN, DC AZITHROMYCIN, CONTINUE ROCEPHIN PN 12/22 (MIRA): 11) PNEUMONIA, UNSPECIFIED ORGANISM; PLAN - CONTINUE ROCEPHIN & LEVAQUIN; PT IS NPO FOR HER DYSPHAGIA, ST FOLLOWING PN 12/23 (MIRA): 11) PNEUMONIA, UNSPECIFIED ORGANISM; SPEECH CONSULT 12/21 - NOT SAFE FOR PO INTAKE NPO STATUS STARTED 12/21; DIET RESUMED 12/22 W/ ASPIRATION RISKS RISK: ASPIRATION RISK PER SPEECH CONSULT 12/21 ADVANCED AGE W/CONTINUED WEAKNESS TREATMENT: IV ANTIBIOTICS (ROCEPHIN 12/19 - PRESENT; LEVAQUIN 12/21 - PRESENT) SPEECH CONSULT (12/21) THANK YOU! Ethel (This form is maintained as a part of the permanent medical record) 2014 [employer]. All Rights Reserved Ethel Colindres RN, BSN [email or web address] Office: [phone] [facility]
[2018-12-23] MEDS: Montelukast Sodium 10 mg Tablet PO SCH (21:10)
[2018-12-23] MEDS: cefTRIAXone\\ROCEPHIN 2 GM in Sodium Chloride 0.9% 100 ML IVPB SCH (22:32)
[2018-12-23] MEDS: hydrALAZINE 20 MG/ML VIAL SLOW IVP PRN (22:53)
[2018-12-24] MEDS: metroNIDAZOLE 500 MG in Premix Bag 1 BAG IVPB SCH ×3 (05:29→22:30)
[2018-12-24] MEDS: Arformoterol 15 MCG/2 ML NEB NEB SCH ×2 (07:26→18:46)
[2018-12-24] MEDS: Budesonide 0.5 MG/2 ML NEB NEB SCH ×2 (07:26→18:46)
[2018-12-24] MEDS: Famotidine/PF 20 mg/2ml Vial SLOW IVP SCH ×2 (08:17→22:31)
[2018-12-24] MEDS: Mesalamine DR 400 mg Capsule PO SCH ×3 (08:19→22:31)
[2018-12-24] MEDS: Cetirizine HCl 10 MG TAB PO SCH (08:20)
[2018-12-24] MEDS: Dextrose 5 % And 0.9 % NaCl 1,000 ML IV SCH (10:45)
--- NOTE | 2018-12-24 20:53 | PDOC.PN ---
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 Daughter reports she may take her mom home -: and not use Hospice and will coordinate with her brother. - Objective Resuscitation Status - Order Detail: 12/21/18 14:37 Resuscitation Status Routine Resuscitation Status: DNAR: NO Resuscitation Discussed with: discussed with daughter MINESH Reviewed: Yes Vital Signs & Weight: Vital Signs (12 hours) Temp Pulse Resp BP BP Pulse Ox 12/24/18 20:00 97.9 F 85 16 161/75 H 92 L 12/24/18 18:46 74 18 97 12/24/18 18:42 74 18 97 12/24/18 15:37 98.4 F 72 16 161/73 H 96 12/24/18 13:12 71 20 95 12/24/18 11:30 98.0 F 74 20 169/77 H 98 Weight Weight 89 lb 4.8 oz Most Recent Monitor Data Heart Rate from ECG 68 I&O: 12/23/18 12/24/18 12/25/18 06:59 06:59 06:59 Intake Total 940 240 450 Balance 940 240 450 Result Diagrams: 12/22/18 05:52 12/22/18 05:52 Additional Labs: Microbiology 12/17/18 16:58 Stool - Pending Stool Occult Blood (JUSTIN) - Final 12/17/18 16:45 Urine voided Urine Culture - Final Escherichia coli Phys Exam - Physical Examination alert, nods and responds briefly to questions HEENT: PERRLA, sclera anicteric, oral pharynx no lesions Neck: no nodes, no JVD, supple, full ROM Respiratory: no wheezing, no rales, no rhonchi, clear to auscultation bilateral S1, S2 Cardiovascular: RRR, no significant murmur, no rub, gallop Gastrointestinal: soft, non-tender, no distention, positive bowel sounds + dependent edema of UE's Musculoskeletal: pulses present L hemiparesis, L facial droop, mild dysarthria Skin: normal turgor, cap refill <2 seconds Dx/Plan (1) UTI (urinary tract infection) Status: Acute Comment: E. coli on current Rocephin, transition to po option for home (2) CVA (cerebral vascular accident) Code(s): I63.9 - CEREBRAL INFARCTION, UNSPECIFIED Status: Acute Comment: Suspected with L hemiparesis, no intervention or imaging per family, med mgmt limited due to recent GI bleed/diverticulitis (3) Physical deconditioning Code(s): R53.81 - OTHER MALAISE Status: Chronic Comment: Severe deconditioning (4) Acute blood loss anemia Code(s): D62 - ACUTE POSTHEMORRHAGIC ANEMIA Status: Acute Comment: s/p 3u PRBC's (5) Acute diverticulitis Code(s): K57.92 - DVTRCLI OF INTEST, PART UNSP, W/O PERF OR ABSCESS W/O BLEED Status: Acute Comment: Resolving, convert to po abx in 24h (6) GI bleed Code(s): K92.2 - GASTROINTESTINAL HEMORRHAGE, UNSPECIFIED Status: Acute Qualifiers: GI bleed type/associated pathology: diverticulitis Qualified Code(s): K57.93 - Diverticulitis of intestine, part unspecified, without perforation or abscess with bleeding Comment: Resolved (7) Pneumonia Code(s): J18.9 - PNEUMONIA, UNSPECIFIED ORGANISM Status: Acute Comment: Likely due to aspiration event, continue Levaquin - Plan plan discussed w/ family, continue antibiotics, PT/OT, medical social worker, respiratory therapy, DVT proph w/SCDs Stable overall -: Daughter likely will take her mom home to care for her and not pursue -: inpt hospice, she feels she was mislead about what hospice can do -: Convert abx to po options prior to d/c -: Confirm with daughter prior to d/c if she would consider hospice at home * though she is denying it currently * Code Status: DNAR *
[2018-12-24] MEDS: Montelukast Sodium 10 mg Tablet PO SCH (22:31)
[2018-12-24] MEDS: cefTRIAXone\\ROCEPHIN 2 GM in Sodium Chloride 0.9% 100 ML IVPB SCH (22:49)
[2018-12-25] MEDS: metroNIDAZOLE 500 MG in Premix Bag 1 BAG IVPB SCH ×3 (06:16→21:25)
[2018-12-25] MEDS: Budesonide 0.5 MG/2 ML NEB NEB SCH ×2 (07:12→19:23)
[2018-12-25] MEDS: Arformoterol 15 MCG/2 ML NEB NEB SCH ×2 (07:13→19:23)
[2018-12-25] MEDS: hydrALAZINE 20 MG/ML VIAL SLOW IVP PRN (08:13)
[2018-12-25] MEDS: Cetirizine HCl 10 MG TAB PO SCH (08:13)
[2018-12-25] MEDS: Famotidine/PF 20 mg/2ml Vial SLOW IVP SCH ×2 (08:13→21:24)
[2018-12-25] MEDS: Mesalamine DR 400 mg Capsule PO SCH ×2 (08:13→21:25)
[2018-12-25] MEDS: Scopolamine 1.5 mg/72 hour Patch TD SCH (14:13)
[2018-12-25] MEDS: Dextrose 5 % And 0.9 % NaCl 1,000 ML IV SCH (15:48)
--- NOTE | 2018-12-25 16:34 | PDOC.PN ---
- Subjective Encounter Start Date: 12/25/18 Encounter Start Time: 11:00 Subjective: pt up in bed does not appear in any distress. -: Daughter updated. Hospice to come meet with pt's family - Objective Resuscitation Status - Order Detail: 12/21/18 14:37 Resuscitation Status Routine Resuscitation Status: DNAR: NO Resuscitation Discussed with: discussed with daughter Vital Signs & Weight: Vital Signs (12 hours) Temp Pulse Resp BP BP Pulse Ox 12/25/18 13:16 87 22 H 95 12/25/18 12:55 94 L 12/25/18 10:20 92 95 12/25/18 10:00 98.3 F 89 28 H 154/66 H 93 L 12/25/18 08:13 86 197/84 H 12/25/18 08:00 98.2 F 86 20 197/84 H 92 L 12/25/18 07:51 98.2 F 86 20 197/84 H 92 L 12/25/18 07:13 86 20 93 L 12/25/18 07:12 86 20 93 L 12/25/18 07:08 86 20 93 L Weight Weight 89 lb 4.8 oz Most Recent Monitor Data Heart Rate from ECG 68 I&O: 12/24/18 12/25/18 12/26/18 06:59 06:59 06:59 Intake Total 240 450 Balance 240 450 Result Diagrams: 12/22/18 05:52 12/22/18 05:52 Phys Exam - Physical Examination mild rhonchi to upper chest Cardiovascular: RRR, no significant murmur, no rub, gallop, irregular Gastrointestinal: soft, non-tender, no distention, positive bowel sounds Musculoskeletal: no edema, pulses present, edema present Dx/Plan (1) UTI (urinary tract infection) Status: Acute Comment: E. coli on current Rocephin, transition to po option for home (2) CVA (cerebral vascular accident) Code(s): I63.9 - CEREBRAL INFARCTION, UNSPECIFIED Status: Acute Comment: Suspected with L hemiparesis, no intervention or imaging per family, med mgmt limited due to recent GI bleed/diverticulitis (3) Acute diverticulitis Code(s): K57.92 - DVTRCLI OF INTEST, PART UNSP, W/O PERF OR ABSCESS W/O BLEED Status: Acute Comment: Resolving, convert to po abx in 24h (4) GI bleed Code(s): K92.2 - GASTROINTESTINAL HEMORRHAGE, UNSPECIFIED Status: Acute Qualifiers: GI bleed type/associated pathology: diverticulitis Qualified Code(s): K57.93 - Diverticulitis of intestine, part unspecified, without perforation or abscess with bleeding Comment: Resolved (5) Physical deconditioning Code(s): R53.81 - OTHER MALAISE Status: Chronic Comment: Severe deconditioning - Plan will continue abx -: hospice to evaluate pt. pt's daughter wants pt to have thin liquids -: did explain the risk of aspiration which daughter is ok with. -: will add scoplamine patch. * . Review of Systems - Review of Systems Respiratory: Shortness of Breath Cardiovascular: negative: chest pain, palpitations, orthopnea, paroxysmal nocturnal dyspnea, edema, light headedness, other Gastrointestinal: negative: Nausea, Vomiting, Abdominal Pain, Diarrhea, Constipation, Melena, Hematochezia, Other Genitourinary: negative: Dysuria, Frequency, Incontinence, Hematuria, Retention , Other - Medications/Allergies Allergies/Adverse Reactions: Allergies Allergy/AdvReac Type Severity Reaction Status Date / Time [place] And Derivatives Allergy Verified 12/18/18 00:09 lactulose Allergy Verified 12/18/18 00:09 Penicillins Allergy Verified 12/18/18 00:09 Medications: Current Medications Acetaminophen (Tylenol) 650 mg PO Q4H PRN PRN Reason: Headache/Fever/Mild Pain (1-3) Albuterol Sulfate (Ventolin) 4 mg PO [id number] [facility] Last Admin: 12/25/18 13:05 Dose: 4 mg Albuterol Sulfate (Proventil Hfa) 2 puff INH Q2H PRN PRN Reason: Wheezing Albuterol/Ipratropium (Duoneb) 3 ml NEB [id number] [facility] Last Admin: 12/25/18 13:16 Dose: 3 ml Albuterol/Ipratropium (Duoneb) 3 ml NEB [id number] PRN PRN Reason: SOB &/or Wheezing Last Admin: 12/22/18 20:37 Dose: 3 ml Arformoterol Tartrate (Brovana) 15 mcg NEB BID-RT [facility] Last Admin: 12/25/18 07:13 Dose: 15 mcg Budesonide (Pulmicort Neb Solution) 0.5 mg NEB BID-RT [facility] Last Admin: 12/25/18 07:12 Dose: 0.5 mg Cetirizine HCl (Zyrtec) 10 mg PO DAILY [facility] Last Admin: 12/25/18 08:13 Dose: Not Given Famotidine (Pepcid) 20 mg SLOW IVP Q12HR [facility] Last Admin: 12/25/18 08:13 Dose: 20 mg Hydralazine HCl (Apresoline) 5 mg SLOW IVP Q4H PRN PRN Reason: BP > 170/105 Last Admin: 12/25/18 08:13 Dose: 5 mg Metronidazole 500 mg/ Device 100 mls @ 100 mls/hr IVPB Q8HR [facility] Last Admin: 12/25/18 13:04 Dose: 100 mls Levofloxacin 500 mg/ Device 100 mls @ 100 mls/hr IVPB ONCALL-OR [facility] Dextrose/Sodium Chloride (D5 0.9% Ns) 1,000 mls @ 30 mls/hr IV .Q24H [facility] Last Admin: 12/25/18 15:48 Dose: 1,000 mls Mesalamine (Delzicol Dr) 800 mg PO BID [facility] Last Admin: 12/25/18 08:13 Dose: 800 mg Montelukast Sodium (Singulair) 10 mg PO HS [facility] Last Admin: 12/24/18 22:31 Dose: 10 mg Ondansetron HCl (Zofran Odt) 4 mg PO Q6H PRN PRN Reason: Nausea/Vomiting Ondansetron HCl (Zofran) 4 mg IVP Q6H PRN PRN Reason: Nausea/Vomiting Scopolamine (Transderm Scop) 1.5 mg TD Q3D [facility] Last Admin: 12/25/18 14:13 Dose: 1.5 mg Sodium Chloride (Flush - Normal Saline) 10 ml IVF Q12HR [facility] Last Admin: 12/25/18 08:15 Dose: 10 ml Sodium Chloride (Flush - Normal Saline) 10 ml IVF PRN PRN PRN Reason: Saline Flush
[2018-12-25] MEDS ORDERED: Furosemide 40 MG/4 ML VIAL SLOW IVP SCH (21:00)
[2018-12-25] MEDS: Montelukast Sodium 10 mg Tablet PO SCH (21:25)
[2018-12-26] MEDS: hydrALAZINE 20 MG/ML VIAL SLOW IVP PRN ×2 (01:22→08:08)
[2018-12-26] MEDS: metroNIDAZOLE 500 MG in Premix Bag 1 BAG IVPB SCH ×3 (06:43→20:50)
[2018-12-26] MEDS: Budesonide 0.5 MG/2 ML NEB NEB SCH ×2 (07:00→19:11)
[2018-12-26] MEDS: Arformoterol 15 MCG/2 ML NEB NEB SCH ×2 (07:15→19:10)
[2018-12-26] MEDS: Mesalamine DR 400 mg Capsule PO SCH ×2 (08:08→20:51)
[2018-12-26] MEDS: Famotidine/PF 20 mg/2ml Vial SLOW IVP SCH ×2 (08:08→20:50)
[2018-12-26] MEDS: Cetirizine HCl 10 MG TAB PO SCH (08:08)
[2018-12-26] MEDS: Dextrose 5 % And 0.9 % NaCl 1,000 ML IV SCH (10:37)
--- NOTE | 2018-12-26 14:04 | PDOC.PN ---
- Subjective Encounter Start Date: 12/26/18 Encounter Start Time: 14:02 Subjective: Admitted with acute onset of abdominal pain and hematochezia and found to -: features of acute diverticulitis. Treated with IV antibiotics and blood. -: No new problem. hospice are talking with relative about discharge. - Objective Resuscitation Status - Order Detail: 12/21/18 14:37 Resuscitation Status Routine Resuscitation Status: DNAR: NO Resuscitation Discussed with: discussed with daughter Vital Signs & Weight: Vital Signs (12 hours) Temp Pulse Resp BP BP BP Pulse Ox 12/26/18 11:00 98.0 F 84 20 128/63 100 12/26/18 10:54 137/62 100 12/26/18 08:08 81 173/83 H 12/26/18 08:00 100 12/26/18 07:58 98.1 F 82 18 173/83 H 100 12/26/18 07:15 82 28 H 97 12/26/18 07:01 97 12/26/18 07:00 82 28 H 97 12/26/18 06:59 82 28 H 97 12/26/18 04:00 98.1 F 82 18 152/71 H 96 Weight Weight 89 lb 4.8 oz Most Recent Monitor Data Heart Rate from ECG 68 I&O: 12/25/18 12/26/18 12/27/18 06:59 06:59 06:59 Intake Total 450 555 Balance 450 555 Result Diagrams: 12/22/18 05:52 12/22/18 05:52 Phys Exam - Physical Examination chronically ill looking elderly female in no obvious distress. afebrile. Neck: supple Fair air entry bilaterally with prolonged expiration with transmitted sound and few rhonchi. work of breathing is mildly increased Cardiovascular: RRR Gastrointestinal: soft, non-tender, no distention, positive bowel sounds Musculoskeletal: no edema, pulses present awake but not very conversational. decreased power of left upper limb noted Examination is limited due to patient factor. She wanted to be left alone Deviation from normal: scattered bruise and ecchymosis noted Dx/Plan (1) Acute CVA (cerebrovascular accident) Code(s): I63.9 - CEREBRAL INFARCTION, UNSPECIFIED Status: Acute (2) Chronic respiratory failure with hypoxia Code(s): J96.11 - CHRONIC RESPIRATORY FAILURE WITH HYPOXIA Status: Acute (3) COPD (chronic obstructive pulmonary disease) Status: Acute (4) Acute blood loss anemia Code(s): D62 - ACUTE POSTHEMORRHAGIC ANEMIA Status: Acute Comment: s/p 3u PRBC's (5) Acute diverticulitis Code(s): K57.92 - DVTRCLI OF INTEST, PART UNSP, W/O PERF OR ABSCESS W/O BLEED Status: Acute Comment: Resolving, convert to po abx in 24h (6) GI bleed Code(s): K92.2 - GASTROINTESTINAL HEMORRHAGE, UNSPECIFIED Status: Acute Qualifiers: GI bleed type/associated pathology: diverticulitis Qualified Code(s): K57.93 - Diverticulitis of intestine, part unspecified, without perforation or abscess with bleeding Comment: Resolved (7) Hypokalemia Code(s): E87.6 - HYPOKALEMIA Status: Acute (8) Hypomagnesemia Code(s): E83.42 - HYPOMAGNESEMIA Status: Acute (9) Hypophosphatemia Code(s): E83.39 - OTHER DISORDERS OF PHOSPHORUS METABOLISM Status: Acute (10) Left-sided weakness Code(s): R53.1 - WEAKNESS Status: Acute (11) UTI (urinary tract infection) Status: Acute Qualifiers: Urinary tract infection type: acute cystitis Comment: E. coli on current Rocephin, transition to po option for home (12) IBD (inflammatory bowel disease) Code(s): K52.9 - NONINFECTIVE GASTROENTERITIS AND COLITIS, UNSPECIFIED Status : Chronic (13) Physical deconditioning Code(s): R53.81 - OTHER MALAISE Status: Chronic Comment: Severe deconditioning (14) Protein-calorie malnutrition, moderate Code(s): E44.0 - MODERATE PROTEIN-CALORIE MALNUTRITION Status: Chronic - Plan Continue current treatments -: Will transition antibiotics to oral on discharge. -: Patient and realtive are interested in hospice care and are meeting -: with hospice team. -: For discharge once discharge disposition is concluded * .
[2018-12-26] MEDS ORDERED: Furosemide 40 MG/4 ML VIAL SLOW IVP SCH (20:15)
[2018-12-26] MEDS: Montelukast Sodium 10 mg Tablet PO SCH (20:51)
[2018-12-26] MEDS ORDERED: Lorazepam 0.5 MG TAB PO PRN (22:18)
[2018-12-27] MEDS: Mesalamine DR 400 mg Capsule PO SCH ×3 (00:08→20:03)
[2018-12-27] MEDS: Montelukast Sodium 10 mg Tablet PO SCH ×2 (00:09→20:03)
[2018-12-27] MEDS: metroNIDAZOLE 500 MG in Premix Bag 1 BAG IVPB SCH ×3 (06:35→20:04)
[2018-12-27 07:31] LABS: #Basophils 0.1 thou/uL (0.0-0.2); #Eosinphils 0.1 thou/uL (0.0-0.7); #Lymphocytes 0.7 thou/uL (1.20-3.40); #Monocytes 0.5 thou/uL (0.11-0.59); %Basophils 1.3 % (0.0-1.0); %Eosinophils 2.2 % (0.0-10.0); %Lymphocytes 13.1 % (21.0-51.0); %Neutrophils 74.3 % (42.0-75.0); Hemoglobin 9.6 g/dL (12.0-16.0); Mean Corpuscular HGB CONC 31.2 g/dL (32.0-36.0); Mean Corpuscular Hemoglobin 32.1 pg (27.0-31.0); Mean Platelet Volume 7.1 fL (7.4-10.4); Platelet Count 257 thou/uL (130-400); RBC Distribution Width 14.1 % (11.5-14.5); Red Blood Cell (RBC) Count 2.99 mill/uL (4.20-5.40); White Blood Cell (WBC) Count 5.4 thou/uL (4.8-10.8)
[2018-12-27] MEDS: Budesonide 0.5 MG/2 ML NEB NEB SCH ×2 (07:47→18:52)
[2018-12-27 07:50] LABS: BUN (Urea Nitrogen) 15 mg/dL (9.8-20.1); Calc. Creatinine Clearance 47 mL/min (70-130); Calcium 8.6 mg/dL (7.8-10.44); Estimated GFR-MDRD Greater than 90; Glucose 95 mg/dL (83-110); Magnesium 1.3 mg/dL (1.6-2.6)
[2018-12-27 07:58] LABS: Anion Gap 13 mmol/L (10-20); Carbon Dioxide 34 mmol/L (23-31); Chloride 102 mmol/L (98-107); Sodium 146 mmol/L (136-145)
[2018-12-27 08:05] LABS: Potassium 2.9 mmol/L (3.5-5.1)
[2018-12-27] MEDS: Famotidine/PF 20 mg/2ml Vial SLOW IVP SCH ×2 (08:29→20:03)
[2018-12-27] MEDS: Arformoterol 15 MCG/2 ML NEB NEB SCH ×2 (08:36→18:52)
[2018-12-27] MEDS: Cetirizine HCl 10 MG TAB PO SCH (11:18)
[2018-12-27] MEDS: Dextrose 5 % And 0.9 % NaCl 1,000 ML IV SCH (12:03)
[2018-12-27] MEDS ORDERED: Magnesium 2 GM/NS 0.9% 100 ML 4 GM in Premix Bag 1 BAG IVPB SCH (14:15)
--- NOTE | 2018-12-27 14:21 | PDOC.PN ---
- Subjective Encounter Start Date: 12/27/18 Encounter Start Time: 14:19 Subjective: More awake and cooperative today. -: Denied any discomfort. Oral intake remained inconsistent and poor. - Objective Resuscitation Status - Order Detail: 12/21/18 14:37 Resuscitation Status Routine Resuscitation Status: DNAR: NO Resuscitation Discussed with: discussed with daughter Vital Signs & Weight: Vital Signs (12 hours) Temp Pulse Resp BP BP Pulse Ox 12/27/18 08:36 63 20 94 L 12/27/18 07:50 97.6 F 62 16 170/70 H 99 12/27/18 07:47 63 20 94 L 12/27/18 07:42 63 20 94 L 12/27/18 04:00 97.4 F L 74 18 150/71 H 97 Weight Weight 89 lb 4.8 oz Most Recent Monitor Data Heart Rate from ECG 68 I&O: 12/26/18 12/27/18 12/28/18 06:59 06:59 06:59 Intake Total 555 580 Balance 555 580 Result Diagrams: 12/27/18 07:17 12/27/18 07:17 Phys Exam - Physical Examination Cachetic elderly female in no obvious distrtress. afebrile HEENT: PERRLA, moist MMs Neck: no JVD, supple Fair air entry [id number] with some transmitted sound. Cardiovascular: RRR 3/6 systolic murmur noted Gastrointestinal: soft, non-tender, no distention, positive bowel sounds Musculoskeletal: no edema, pulses present Neurological: moves all 4 limbs some confusion and memory lapses noted Dx/Plan (1) Acute CVA (cerebrovascular accident) Code(s): I63.9 - CEREBRAL INFARCTION, UNSPECIFIED Status: Acute (2) Chronic respiratory failure with hypoxia Code(s): J96.11 - CHRONIC RESPIRATORY FAILURE WITH HYPOXIA Status: Acute (3) COPD (chronic obstructive pulmonary disease) Status: Acute (4) Acute blood loss anemia Code(s): D62 - ACUTE POSTHEMORRHAGIC ANEMIA Status: Acute Comment: s/p 3u PRBC's (5) Acute diverticulitis Code(s): K57.92 - DVTRCLI OF INTEST, PART UNSP, W/O PERF OR ABSCESS W/O BLEED Status: Acute Comment: Resolving, convert to po abx in 24h (6) GI bleed Code(s): K92.2 - GASTROINTESTINAL HEMORRHAGE, UNSPECIFIED Status: Acute Qualifiers: GI bleed type/associated pathology: diverticulitis Qualified Code(s): K57.93 - Diverticulitis of intestine, part unspecified, without perforation or abscess with bleeding Comment: Resolved (7) Hypokalemia Code(s): E87.6 - HYPOKALEMIA Status: Acute Comment: Severe and recurrent. May be related to hypomagnesemia (8) Hypomagnesemia Code(s): E83.42 - HYPOMAGNESEMIA Status: Acute (9) Hypophosphatemia Code(s): E83.39 - OTHER DISORDERS OF PHOSPHORUS METABOLISM Status: Acute (10) Left-sided weakness Code(s): R53.1 - WEAKNESS Status: Acute (11) UTI (urinary tract infection) Status: Acute Qualifiers: Urinary tract infection type: acute cystitis Comment: E. coli on current Rocephin, transition to po option for home (12) IBD (inflammatory bowel disease) Code(s): K52.9 - NONINFECTIVE GASTROENTERITIS AND COLITIS, UNSPECIFIED Status : Chronic (13) Physical deconditioning Code(s): R53.81 - OTHER MALAISE Status: Chronic Comment: Severe deconditioning (14) Protein-calorie malnutrition, moderate Code(s): E44.0 - MODERATE PROTEIN-CALORIE MALNUTRITION Status: Chronic - Plan Replete severehypokalemia and hypomagnesemia with IV KCL and magnesium sulp -: Continue antibiotics. Still keep it IV as oral intake is inconsistent -: For discharge once home hospice arrangement is concluded -: Recheck electrolytes in the am * .
[2018-12-27] MEDS ORDERED: Magnesium 2 GM/50 ML 2 GM in Premix Bag 1 BAG IVPB SCH (15:00)
[2018-12-27] MEDS ORDERED: Potassium Chloride 40 MEQ in Sodium Chloride 0.9% 250 ML 250 ML IVPB SCH (16:30)
[2018-12-28] MEDS: metroNIDAZOLE 500 MG in Premix Bag 1 BAG IVPB SCH ×3 (05:10→20:14)
--- NOTE | 2018-12-28 07:27 | PDOC.PN ---
- Subjective Encounter Start Date: 12/28/18 Encounter Start Time: 07:26 Subjective: Seen and examined -nothing new - Objective Resuscitation Status - Order Detail: 12/21/18 14:37 Resuscitation Status Routine Resuscitation Status: DNAR: NO Resuscitation Discussed with: discussed with daughter Vital Signs & Weight: Vital Signs (12 hours) Pulse Resp BP Pulse Ox 12/28/18 01:42 69 18 100 12/27/18 20:15 149/70 H 12/27/18 20:00 100 Weight Weight 89 lb 4.8 oz Most Recent Monitor Data Heart Rate from ECG 68 I&O: 12/27/18 12/28/18 12/29/18 06:59 06:59 06:59 Intake Total 580 510 Balance 580 510 Result Diagrams: 12/27/18 07:17 12/27/18 07:17 Phys Exam - Physical Examination Constitutional: NAD HEENT: PERRLA, moist MMs, sclera anicteric Neck: no nodes, no JVD, supple, full ROM Respiratory: no wheezing, no rales, no rhonchi, clear to auscultation bilateral Cardiovascular: RRR, no significant murmur Gastrointestinal: non-tender Dx/Plan (1) Acute CVA (cerebrovascular accident) Code(s): I63.9 - CEREBRAL INFARCTION, UNSPECIFIED Status: Acute (2) Acute blood loss anemia Code(s): D62 - ACUTE POSTHEMORRHAGIC ANEMIA Status: Acute Comment: s/p 3u PRBC's (3) Acute diverticulitis Code(s): K57.92 - DVTRCLI OF INTEST, PART UNSP, W/O PERF OR ABSCESS W/O BLEED Status: Acute Comment: Resolving, convert to po abx in 24h (4) COPD (chronic obstructive pulmonary disease) Status: Acute (5) CVA (cerebral vascular accident) Code(s): I63.9 - CEREBRAL INFARCTION, UNSPECIFIED Status: Acute Comment: Suspected with L hemiparesis, no intervention or imaging per family, med mgmt limited due to recent GI bleed/diverticulitis (6) Chronic respiratory failure with hypoxia Code(s): J96.11 - CHRONIC RESPIRATORY FAILURE WITH HYPOXIA Status: Acute - Plan plan discussed w/ family, social work assistant Home with hospice once arragement is finalised * .
[2018-12-28 08:09] LABS: Anion Gap 9 mmol/L (10-20); BUN (Urea Nitrogen) 13 mg/dL (9.8-20.1); Calc. Creatinine Clearance 49 mL/min (70-130); Calcium 8.6 mg/dL (7.8-10.44); Carbon Dioxide 37 mmol/L (23-31); Chloride 106 mmol/L (98-107); Estimated GFR-MDRD Greater than 90; Glucose 99 mg/dL (83-110); Magnesium 2.1 mg/dL (1.6-2.6); Potassium 3.5 mmol/L (3.5-5.1); Sodium 148 mmol/L (136-145)
[2018-12-28] MEDS: Famotidine/PF 20 mg/2ml Vial SLOW IVP SCH ×2 (09:06→19:23)
[2018-12-28] MEDS: hydrALAZINE 20 MG/ML VIAL SLOW IVP PRN (09:10)
[2018-12-28] MEDS: Mesalamine DR 400 mg Capsule PO SCH ×2 (09:11→19:23)
[2018-12-28] MEDS: Cetirizine HCl 10 MG TAB PO SCH (09:11)
[2018-12-28] MEDS: Dextrose 5 % And 0.9 % NaCl 1,000 ML IV SCH (10:09)
[2018-12-28] MEDS: Budesonide 0.5 MG/2 ML NEB NEB SCH ×2 (10:28→18:43)
[2018-12-28] MEDS: Arformoterol 15 MCG/2 ML NEB NEB SCH ×2 (10:46→18:43)
[2018-12-28] MEDS: Scopolamine 1.5 mg/72 hour Patch TD SCH (15:02)
[2018-12-28] MEDS: Montelukast Sodium 10 mg Tablet PO SCH (19:23)
[2018-12-29] MEDS: metroNIDAZOLE 500 MG in Premix Bag 1 BAG IVPB SCH ×3 (05:31→22:17)
[2018-12-29] MEDS: Dextrose 5 % And 0.9 % NaCl 1,000 ML IV SCH (05:36)
[2018-12-29] MEDS: Arformoterol 15 MCG/2 ML NEB NEB SCH ×2 (06:53→19:58)
[2018-12-29] MEDS: Budesonide 0.5 MG/2 ML NEB NEB SCH ×2 (06:53→19:58)
[2018-12-29] MEDS: Famotidine/PF 20 mg/2ml Vial SLOW IVP SCH ×2 (08:43→20:25)
[2018-12-29] MEDS: Cetirizine HCl 10 MG TAB PO SCH (08:43)
[2018-12-29] MEDS: Mesalamine DR 400 mg Capsule PO SCH ×2 (08:44→22:17)
[2018-12-29] MEDS: Montelukast Sodium 10 mg Tablet PO SCH (20:25)
--- NOTE | 2018-12-30 00:40 | DIS ---
DATE OF ADMISSION: 12/17/2018 DATE OF DISCHARGE: 12/29/2018 DISCHARGE DIAGNOSES: 1. Urinary tract infection with Escherichia coli, resolved. 2. Acute cerebrovascular accident with left hemiparesis, medical management. 3. Physical deconditioning. 4. Acute blood loss anemia, status post 3 units of packed red blood cells. 5. Acute diverticulitis, resolved. 6. Gastrointestinal bleed secondary to acute diverticulitis, stable. 7. Aspiration pneumonia with gram-negative rods. CONSULTATIONS: Dr. Hair and Rory with GI Service. PERTINENT LAB AND X-RAY FINDINGS: Potassium ranged between 2.3 to 4.1, phosphorus ranged between 1.7 to 2.4, magnesium level ranged between 1.5 to 2.5. CBC showed a white blood cell count ranged between 5.4 to 15.4, hemoglobin ranged between 6.7 to 10.8. Urine culture from 12/17/2018 showed greater than 100,000 colonies of E coli, pansensitive. Stool Hemoccult dated 12/17/2018, positive x1. CT of the abdomen and pelvis dated 12/17/2018 showed sigmoid diverticulitis. Portable chest x-ray dated 12/20/2018 showed bibasilar pneumonia with left parapneumonic effusion. HOSPITAL COURSE: The patient was initially admitted after presenting with hematochezia with associated acute blood loss anemia. The patient was monitored with serial hemoglobins showing overall decreasing values from an initial of 10.8. The patient received a total of 3 units of packed red blood cells during hospital course and evaluated by the GI Service. The patient was placed on IV antibiotic therapy after CT imaging of the abdomen and pelvis showed evidence of sigmoid diverticulitis, treated with Levaquin and Flagyl. The patient was also treated for urinary tract infection with E coli species with IV Rocephin. E coli species was pansensitive as noted previously with resolution prior to the time of discharge. The patient was also treated for multitude of metabolic derangements including hypokalemia and hypophosphatemia. The patient was also managed due to a complication of aspiration pneumonia, sustained during my hospital course. The patient also sustained an acute CVA during her hospital stay with medical management only due to GI bleeding and multiple comorbid conditions. Due to the patient's multitude of comorbid status, worsening clinical condition, acute CVA and deconditioning, the patient was evaluated by the Palliative Care and Hospice Service. The patient was deemed an appropriate candidate for ongoing hospice services with decision to transition to hospice at home. I have examined the patient at the time of discharge and discussed followup instructions and disposition with the patient's daughter, who is medical power of industrial x ray operator at the time of discharge. The daughter verbalized understanding and in agreement, and patient will be discharged home with [facility] on 12/29/2018. DISCHARGE MEDICATIONS: 1. Albuterol sulfate one inhalation q.i.d. p.r.n. 2. Brovana 15 mcg inhaled b.i.d. 3. Budesonide 0.5 mg inhaled b.i.d. 4. Mesalamine 800 mg p.o. b.i.d. 5. Singulair 10 mg p.o. at bedtime. 6. Lorazepam 0.5 mg p.o. q.4 hours p.r.n. 7. Scopolamine patch 1.5 mg transdermally q.72 hours. FOLLOWUP: The patient may follow up with her primary care provider, Dr. Brayden Carrasco. The patient will also follow up with [facility] on returning home, 12/29/2018. CONDITION ON DISCHARGE: Guarded. ACTIVITY: Ad-geena. Currently bed-bound status. DIET: Regular as tolerated. CODE STATUS: Do not attempt resuscitation. DISPOSITION: Discharged home with [facility] on 12/29/2018. TIME SPENT: Total time preparing and coordinating discharge, 37 minutes. Job ID: [id number]
[2018-12-30] MEDS: metroNIDAZOLE 500 MG in Premix Bag 1 BAG IVPB SCH (06:03)
[2018-12-30] MEDS: Budesonide 0.5 MG/2 ML NEB NEB SCH (07:09)
[2018-12-30] MEDS: Arformoterol 15 MCG/2 ML NEB NEB SCH (07:10)
[2018-12-30 07:46] VITALS: BP 178/76; TEMP 97.7
[2018-12-30] MEDS: Famotidine/PF 20 mg/2ml Vial SLOW IVP SCH (09:28)
[2018-12-30] MEDS: Cetirizine HCl 10 MG TAB PO SCH (09:30)
[2018-12-30] MEDS: Mesalamine DR 400 mg Capsule PO SCH (09:30)
[2018-12-30] MEDS: Dextrose 5 % And 0.9 % NaCl 1,000 ML IV SCH (14:14)
== END 2018-12-30 16:51 | disposition hospice, home (50) | DRG 377 ==
LOC: ERS 13:45 → T4-A 17:05
PROVIDERS: ADMIT Emergency Medicine; ATTEND Emergency Medicine
PROC: 30233N1 Transfusion of Nonautologous Red Blood Cells into Peripheral Vein, Percutaneous Approach (ICD-10-PCS; 2018-12-18)
PROC: 0W3P8ZZ Control Bleeding in Gastrointestinal Tract, Via Natural or Artificial Opening Endoscopic (ICD-10-PCS; principal; 2018-12-19)
DX: K57.33 Diverticulitis of large intestine without perforation or abscess with bleeding (principal); I63.9 Cerebral infarction, unspecified; J69.0 Pneumonitis due to inhalation of food and vomit; J15.6 Pneumonia due to other Gram-negative bacteria; N39.0 Urinary tract infection, site not specified; G81.94 Hemiplegia, unspecified affecting left nondominant side; D62 Acute posthemorrhagic anemia; E44.0 Moderate protein-calorie malnutrition; Z68.1 Body mass index [BMI] 19.9 or less, adult; K50.90 Crohn's disease, unspecified, without complications; Z51.5 Encounter for palliative care; Z66 Do not resuscitate; J44.9 Chronic obstructive pulmonary disease, unspecified; F03.90 Unspecified dementia, unspecified severity, without behavioral disturbance, psychotic disturbance, mood disturbance, and anxiety; K64.8 Other hemorrhoids; E87.6 Hypokalemia; E83.39 Other disorders of phosphorus metabolism; E83.42 Hypomagnesemia; J45.30 Mild persistent asthma, uncomplicated; R13.10 Dysphagia, unspecified; B96.20 Unspecified Escherichia coli [E. coli] as the cause of diseases classified elsewhere; Z99.81 Dependence on supplemental oxygen; Z74.01 Bed confinement status; Z88.0 Allergy status to penicillin; Z79.899 Other long term (current) drug therapy
CPT/HCPCS: 36415; 36430; 51701; 71045; 74177; 80048; 80053; 81003; 81015; 82274; 83735; 84100; 85014; 85018; 85025; 85610; 85730; 86850; 86900; 86901; 87077; 87086; 87186; 94640; 94664; 96365; 96367; A4353; J0360; J0456; J0692; J0696; J1940; J2405; J3475; J3480; J7050; J7620; J7626; P9016; Q9966; Q9967; S0028